=== PATIENT | male | born 1940 | race Caucasian/White ===

== ENCOUNTER 2021-05-29 10:04 | Inpatient (IN) ==
--- NOTE | 2021-05-29 10:34 | Emergency Department Note ---
SOB HPI General Chief Complaint: Shortness of Breath/Dyspnea Stated Complaint: SOB, fatigue Time Seen by Provider: 05/29/21 10:10 Source: patient and family Mode of arrival: wheelchair Limitations: no limitations History of Present Illness HPI Narrative: 80-year-old male with O2 dependent COPD presents with 2 days of increasing oxygen requirements from 3 L to 5 L nasal cannula, shortness of breath, weakness, generalized fatigue, and poor appetite. He also carries a history of hypertension, A. fib on chronic Xarelto, history of CVA, CKD stage III, and T2DM. His states that he was ambulatory several days ago, but has now become so weak that he cannot ambulate without assistance. He was treated for pneumonia 1 month ago by provider at [facility]. Chart review shows that he was treated with prednisone. No history of antibiotics. She states that he improved, but did not completely return to his baseline. He denies fever/chills/sweats. Denies chest pain, or worsening edema. Denies abdominal pain, dysuria or hematuria. Related Data Home Medications Medication Instructions Recorded Confirmed blood sugar diagnostic #20 each 07/08/17 02/13/21 gabapentin 300 mg capsule 300 mg PO BID cap 07/08/17 02/13/21 hydrochlorothiazide 25 mg tablet 25 mg PO QDAY 07/08/17 02/13/21 insulin glargine 100 unit/mL (3 20 unit SUB-Q QHS ml 07/08/17 12/22/20 mL) subcutaneous pen (Lantus Solostar U-100 Insulin) lancets #50 each 07/08/17 02/13/21 lisinopril 40 mg tablet 40 mg PO QDAY 07/08/17 02/13/21 onetouch ultra blue test strips .ROUTE 07/08/17 02/13/21 CPAP #1 ea 12/18/18 02/13/21 budesonide 160 mcg-glycopyr 9 2 inh INHALATION BID 06/23/20 02/13/21 mcg-formot 4.8 mcg/actuation HFA inhaler (Breztri Aerosphere) aripiprazole 5 mg tablet 5 mg PO QDAY 02/13/21 02/13/21 fluoxetine 20 mg capsule 20 mg PO QDAY 02/13/21 02/13/21 furosemide 40 mg tablet 40 mg PO QAM 02/13/21 02/13/21 glipizide 5 mg tablet 5 mg PO QDAY tab 02/13/21 02/13/21 lovastatin 40 mg tablet 40 mg PO QDAY 02/13/21 02/13/21 metformin 1,000 mg tablet 1,000 mg PO BID tab 02/13/21 02/13/21 rivaroxaban 20 mg tablet (Xarelto) 20 mg PO QDAY tab 02/13/21 02/13/21 sildenafil 100 mg tablet (Viagra) 100 mg PO QDAY PRN 02/13/21 02/13/21 Previous Rx's Medication Instructions Recorded tamsulosin 0.4 mg capsule (Flomax) 0.4 mg PO QDAY #30 cap 03/24/18 albuterol sulfate 90 mcg/actuation 2 puff INHALATION .Q4-6H PRN #18 g 07/24/18 aerosol inhaler (ProAir HFA) cholecalciferol (vitamin D3) 50 2,000 unit PO QDAY #90 cap 10/20/18 mcg (2,000 unit) capsule diltiazem HCl 240 mg 240 mg PO QDAY #90 cap 05/24/20 capsule,extended release 24 hr ipratropium 0.5 mg-albuterol 3 mg 3 ml INHALATION QID #180 ml NS 06/29/20 (2.5 mg base)/3 mL nebulization soln budesonide 0.5 mg/2 mL suspension 0.5 mg (2 mL) INHALATION BID #60 10/20/20 for nebulization ml NS ferrous sulfate 325 mg (65 mg 325 mg PO QDAY #90 tab 02/13/21 iron) tablet,delayed release Allergies Allergy/AdvReac Type Severity Reaction Status Date / Time No Known Drug Allergies Allergy Verified 05/29/21 10:07 Review of Systems ROS ROS Narrative: Narrative: PFSH Narrative Patient History Narrative: Narrative: Medical/Surgical/Family History All Active Problems (Updated 05/29/21 @ 12:52 by Leda Chandra PA-C) Community acquired pneumonia (Acute) COPD (chronic obstructive pulmonary disease) (Acute) CHF exacerbation (Acute) Weakness (Acute) Iron deficiency anemia, unspecified (Chronic) Anemia due to stage 3b chronic kidney disease (Chronic) CHF (congestive heart failure) (Acute) Hyperkalemia, diminished renal excretion (Acute) Chronic kidney disease (CKD) stage G3b/A2, moderately decreased glomerular filtration rate (GFR) between 30-44 mL/min/1.73 square meter and albuminuria c reatinine ratio between 30-299 mg/g (Chronic) Localized edema due to fluid overload (Chronic) Hypertension in stage 3 chronic kidney disease due to type 2 diabetes mellitus (Acute) AMADOR (dyspnea on exertion) (Chronic) COPD (chronic obstructive pulmonary disease) (Chronic) Vitamin D deficiency (Chronic) Secondary hyperparathyroidism of renal origin (Chronic) Hypoxemia (Chronic) Increased frequency of urination (Chronic) Benign prostatic hyperplasia (Chronic) Atrial flutter (Chronic) CVA (cerebral vascular accident) (Chronic) Acute exacerbation of chronic obstructive airways disease (Chronic) Lower urinary tract infection (Chronic) Obesity (Chronic) Bladder dysfunction (Chronic) intermediate current use of anticoagulant (Chronic) History of sleep apnea (Chronic) Hypoxia (Chronic) A-fib (Chronic) 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) Hypogonadism (Chronic) Persistent microalbuminuria associated with type 2 diabetes mellitus (Chronic) Overactive bladder (Chronic) Deep venous thrombosis (Chronic) Bradycardia (Chronic) Pulmonary embolism (Chronic) Essential hypertension (Chronic) Obstructive sleep apnea syndrome (Chronic) Hyperlipidemia (Chronic) Diabetic peripheral neuropathy (Chronic) Type 2 diabetes mellitus (Chronic) Diabetes mellitus (Chronic) Moderate chronic obstructive pulmonary disease (Chronic) Medical History (Updated 05/29/21 @ 12:52 by Leda Chandra PA-C) A-fib Acute exacerbation of chronic obstructive airways disease Atrial flutter Benign prostatic hyperplasia Bladder dysfunction Bradycardia CHF (congestive heart failure) COPD (chronic obstructive pulmonary disease) CVA (cerebral vascular accident) Deep venous thrombosis Diabetes mellitus Diabetic peripheral neuropathy AMADOR (dyspnea on exertion) Essential hypertension History of cocaine abuse History of tobacco use Hyperlipidemia Hypogonadism Hypoxemia Hypoxia Increased frequency of urination intermediate current use of anticoagulant Lower urinary tract infection Median neuropathy Moderate chronic obstructive pulmonary disease Obesity Obstructive sleep apnea syndrome Overactive bladder Persistent microalbuminuria associated with type 2 diabetes mellitus Pulmonary embolism Respiratory distress Type 2 diabetes mellitus Ulnar nerve entrapment Ulnar neuropathy Surgical History History of carpal tunnel surgery (06/03/89) History of cataract surgery History of colonoscopy with polypectomy History of heart surgery (06/03/15) History of prior ablation treatment AFIB with ablation Family History Father , age: 81 Hypertensive disorder Family history of stroke Mother , age: 89 Hypertensive disorder Family history of stroke Diabetes mellitus Sister Malignant tumor of breast Brother Family history of stroke Social History Smoking Status: Former smoker Alcohol Intake Frequency: 0-2 drinks per day Substance Use: former substance user Exam Narrative Narrative: General: AOx3, NAD, ill appearing. Pleasant and conversant. HEENT: PERRL, EOMI, normocephalic. Moist mucous membranes. Normal facies and normal dentition. Chest: Symmetric, no pain to palpation Respiratory: Decreased breath sounds bilaterally, no crackles. No respiratory distress. Unlabored breathing. 98% on 5 L nasal cannula. Heart: Irregular rate and rhythm, no murmurs/clicks/rubs. Abdomen: Non-tender, Non distended, hypoactive bowel tones. No organomegaly. Extremities: Warm and well perfused. No edema. DP 2+ bilaterally. Bilateral chronic venous stasis. Neuro: No focal deficits. Cranial nerves II-XII grossly normal. Skin: Warm dry, no rashes or lesions, no cyanosis. Psych: Normal mood and affect Heme/Lymph: No abnormal bruising General Limitations: no limitations Course Course Course Narrative: 80-year-old male with O2 dependent COPD presents with weakness, shortness of breath, and increasing oxygen requirements. Reevaluation(s) Reevaluation #1: CBC, CMP, proBNP, chest x-ray, EKG, lactic acid, blood cultures, UA Give 500 mL IV normal saline bolus Reevaluation #2: Chest x-ray shows probable left lower lobe infiltrate. BNP is significantly elevated at 1200. Lactic acid is normal. CBC without leukocytosis, CMP with baseline creatinine 1.5, EKG shows atrial fibrillation rate of 90 bpm no acute ischemic ST changes. QTC of 431. Give 40 IV Lasix x1 dose and start antibiotics for community-acquired pneumonia, 1 g IV ceftriaxone 500 mg IV azithromycin. Patient's curb 65 score is 3 and he would benefit from inpatient admission. I spoken with the hospitalist who agrees to accept the patient for admission and IV antibiotics. Vital Signs Vital signs: Vital Signs Temperature 98.1 F 05/29/21 10:05 Pulse Rate 85 05/29/21 10:05 Respiratory Rate 20 05/29/21 10:05 Pulse Oximetry (%) 95 05/29/21 10:05 Temperature 98.1 F 05/29/21 10:05 Pulse Rate 61 05/29/21 12:16 Respiratory Rate 27 H 05/29/21 12:31 Blood Pressure 164/100 05/29/21 12:31 Pulse Oximetry (%) 96 05/29/21 12:16 MDM MDM Narrative Medical decision making narrative: Community-acquired pneumonia Hypoxia Acute CHF exacerbation Curb 65 score is 3. Patient has left lower lobe infiltrate on chest x-ray and elevated proBNP. Will treat for both community-acquired pneumonia and CHF exacerbation. Blood cultures x2 are pending. Patient has been signed out to Dr. Shaffer for admission. Lab Data Result diagrams: 05/29/21 10:21 05/29/21 10:21 Labs: Lab Results 05/29/21 05/29/21 05/29/21 Range/Units 10:21 10:21 10:21 WBC 8.9 (4.5-11.0) K/mcL RBC 4.07 L (4.63-6.08) M/mcL Hgb 11.2 L (13.7-17.5) g/dL Hct 34.9 L (40.1-51.0) % MCV 85.7 (80.0-100.0) fL MCH 27.5 (26.0-34.0) pg MCHC 32.1 (31.0-36.0) g/dL RDW 14.8 H (11.5-14.5) % Plt Count 222 (140-440) K/mcL MPV 9.5 (7.4-10.4) fL Seg Neutrophils % 85 H (38-78) % Band Neutrophils % 1 (0-10) % Lymphocytes % 9 L (15-49) % Monocytes % (Manual) 5 (1-12) % Platelet Estimate Normal (Normal) RBC Morphology Normal (Normal) VBG Lactic Acid 1.1 (0.5-2.0) mmol/L Sodium 132 L (133-145) mmol/L Potassium 4.0 (3.3-5.1) mmol/L Chloride 93 L (96-108) mmol/L Carbon Dioxide 25 (22-30) mmol/L Anion Gap 14.0 (8.0-16.0) BUN 29 H (8-23) mg/dL Creatinine 1.5 H (0.7-1.2) mg/dL GFR Calculation 44 Glucose 120 H (70-105) mg/dL Calcium 9.1 (8.6-10.4) mg/dL Total Bilirubin 0.6 (0.1-1.0) mg/dL AST 7 (<40) U/L ALT 5 (<40) U/L Alkaline Phosphatase 83 (39-117) U/L NT-Pro-B Natriuret Pep 1242.0 H (<450.0) pg/mL Total Protein 7.6 (5.9-8.4) gm/dL Albumin 3.8 (3.2-5.2) gm/dL Globulin 3.8 H (2.2-3.7) gm/dL Albumin/Globulin Ratio 1.0 (1.0-2.3) Urine Color Urine Appearance (Clear) Urine pH (5.0-9.0) Ur Specific [place] (1.000-1.035) Urine Protein (Negative) mg/dL Urine Glucose (UA) (Negative) mg/dL Urine Ketones (Negative) mg/dL Urine Occult Blood (Negative) mg/dL Urine Nitrate (Negative) Urine Bilirubin (Negative) mg/dL Urine Urobilinogen mg/dL Ur Leukocyte Esterase (Negative) /uL Urine RBC (0-3) /hpf Urine WBC (0-4) /hpf Ur Squamous Epith Cells (0-4) /hpf Urine Bacteria (0) /hpf Hyaline Casts (0-2) /lph Urine Mucus (None) /hpf Ur Culture Indicated? 05/29/21 Range/Units 11:29 WBC (4.5-11.0) K/mcL RBC (4.63-6.08) M/mcL Hgb (13.7-17.5) g/dL Hct (40.1-51.0) % MCV (80.0-100.0) fL MCH (26.0-34.0) pg MCHC (31.0-36.0) g/dL RDW (11.5-14.5) % Plt Count (140-440) K/mcL MPV (7.4-10.4) fL Seg Neutrophils % (38-78) % Band Neutrophils % (0-10) % Lymphocytes % (15-49) % Monocytes % (Manual) (1-12) % Platelet Estimate (Normal) RBC Morphology (Normal) VBG Lactic Acid (0.5-2.0) mmol/L Sodium (133-145) mmol/L Potassium (3.3-5.1) mmol/L Chloride (96-108) mmol/L Carbon Dioxide (22-30) mmol/L Anion Gap (8.0-16.0) BUN (8-23) mg/dL Creatinine (0.7-1.2) mg/dL GFR Calculation Glucose (70-105) mg/dL Calcium (8.6-10.4) mg/dL Total Bilirubin (0.1-1.0) mg/dL AST (<40) U/L ALT (<40) U/L Alkaline Phosphatase (39-117) U/L NT-Pro-B Natriuret Pep (<450.0) pg/mL Total Protein (5.9-8.4) gm/dL Albumin (3.2-5.2) gm/dL Globulin (2.2-3.7) gm/dL Albumin/Globulin Ratio (1.0-2.3) Urine Color Yellow Urine Appearance Clear (Clear) Urine pH 5.0 (5.0-9.0) Ur Specific [place] 1.025 (1.000-1.035) Urine Protein 100 A (Negative) mg/dL Urine Glucose (UA) Negative (Negative) mg/dL Urine Ketones 20 A (Negative) mg/dL Urine Occult Blood 0.03 (Negative) mg/dL Urine Nitrate Negative (Negative) Urine Bilirubin Negative (Negative) mg/dL Urine Urobilinogen 2.0 A mg/dL Ur Leukocyte Esterase Negative (Negative) /uL Urine RBC 1 (0-3) /hpf Urine WBC 1 (0-4) /hpf Ur Squamous Epith Cells 0 (0-4) /hpf Urine Bacteria None (0) /hpf Hyaline Casts 4 H (0-2) /lph Urine Mucus Few A (None) /hpf Ur Culture Indicated? No ED POC Tests ED POC Tests: SAMIRA - Influenza A Negative SAMIRA - Influenza B Negative SAMIRA - SARS Antigen Negative Discharge Plan Patient/Caregiver Discharge Instructions Pt seen by GUARD LIEUTENANT/PA only: Yes Clinical Impression: Community acquired pneumonia, COPD (chronic obstructive pulmonary disease), CHF exacerbation, Weakness Patient Disposition: Xfer As Inpt ([facility]) Condition: Fair Follow up with: Hadley Hernandez DO [Primary Care Provider] - Prescriptions: No Action diltiazem HCl 240 mg capsule,extended release 24hr 240 mg PO QDAY Qty: 90 4RF ipratropium-albuterol 0.5 mg-3 mg(2.5 mg base)/3 mL solution for nebulization 3 ml INHALATION QID Qty: 180 6RF gabapentin 300 mg capsule 300 mg PO BID 0RF hydrochlorothiazide 25 mg tablet 25 mg PO QDAY 0RF insulin glargine [Lantus Solostar U-100 Insulin] 100 unit/mL (3 mL) insulin pen 20 unit SUB-Q QHS 0RF lisinopril 40 mg tablet 40 mg PO QDAY 0RF (DME) blood sugar diagnostic strip See Dose Instructions .ROUTE .MEDSUPPLY Qty: 20 0RF Rx Instructions: As directed (DME) lancets misc See Dose Instructions .ROUTE .MEDSUPPLY Qty: 50 0RF Rx Instructions: As directed onetouch ultra blue test strips .Route 0RF Label Comments: .Route Rx Instructions: .Route Xarelto 20 mg tablet 20 mg PO QDAY 0RF glipizide 5 mg tablet 5 mg PO QDAY 0RF cholecalciferol (vitamin D3) 2,000 unit capsule 2,000 unit PO QDAY Qty: 90 4RF metformin 1,000 mg tablet 1,000 mg PO BID 0RF fluoxetine 20 mg capsule 20 mg PO QDAY 0RF furosemide 40 mg tablet 40 mg PO QAM 0RF sildenafil [Viagra] 100 mg tablet 100 mg PO QDAY PRN0RF Rx Instructions: administer 30 minutes to 4 hours before activity lovastatin 40 mg tablet 40 mg PO QDAY 0RF aripiprazole 5 mg tablet 5 mg PO QDAY 0RF ferrous sulfate 325 mg (65 mg iron) tablet,delayed release (DR/EC) 325 mg PO QDAY Qty: 90 4RF ProAir HFA 90 mcg/actuation HFA aerosol inhaler 2 puff INHALATION .Q4-6H PRN (Reason: Shortness Of Breath) Qty: 18 6RF budesonide 0.5 mg/2 mL suspension for nebulization 0.5 mg inhalation BID Qty: 60 12RF Rx Instructions: Nebulized and inhale 1 vial twice a day; rinse and clear mouth after. (DME) CPAP Qty: 1 0RF Dose Instruction: As directed Rx Instructions: As directed Tracy Traffline 160-9-4.8 mcg/actuation HFA aerosol inhaler 2 inh INHALATION BID 0RF tamsulosin [Flomax] 0.4 mg capsule 0.4 mg PO QDAY Qty: 30 12RF
[2021-05-29 11:08] LABS: Hematocrit 34.9 % (40.1-51.0); Hemoglobin 11.2 g/dL (13.7-17.5); Mean Cell Volume 85.7 fL (80.0-100.0); Mean Corpuscular HGB Conc 32.1 g/dL (31.0-36.0); Mean Platelet Volume 9.5 fL (7.4-10.4); Platelet Count 222 K/mcL (140-440); RBC 4.07 M/mcL (4.63-6.08); Red Cell Distribution Width 14.8 % (11.5-14.5); WBC 8.9 K/mcL (4.5-11.0)
[2021-05-29 11:32] LABS: ALT/SGPT 5 U/L (<40); AST/SGOT 7 U/L (<40); Albumin 3.8 gm/dL (3.2-5.2); Alkaline Phosphatase 83 U/L (39-117); Bilirubin,Total 0.6 mg/dL (0.1-1.0); Blood Urea Nitrogen 29 mg/dL (8-23); Calcium 9.1 mg/dL (8.6-10.4); Carbon Dioxide 25 mmol/L (22-30); Chloride 93 mmol/L (96-108); Globulin 3.8 gm/dL (2.2-3.7); Glomerular Filtration Rate 44; Glucose 120 mg/dL (70-105)
[2021-05-29] MEDS ORDERED: 0.9 % SODIUM CHLORIDE 500 ML IV ONE (11:34)
[2021-05-29] MEDS ORDERED: cefTRIAXone 1 GM VIAL IV ONE (11:56)
[2021-05-29] MEDS ORDERED: FUROSEMIDE 40 MG/4 ML VIAL IV ONE (11:56)
--- NOTE | 2021-05-29 11:56 | XRay Report ---
CLINICAL INFORMATION: Dyspnea COMPARISON: 03/22/2021 TECHNIQUE: Portable FINDINGS: The heart size, mediastinum and pulmonary vessels are unremarkable. Moderate left basilar infiltrate is developing a small left pleural effusion. IMPRESSION: Moderate left basilar infiltrate with small effusion Interpreted and Authenticated by: Nicola Dias 05/29/21
[2021-05-29] MEDS ORDERED: AZITHROMYCIN 500 MG in DEXTROSE 5% IN WATER 250 ML IV ONE (11:57)
[2021-05-29 12:01] LABS: Band Neutrophils % 1 % (0-10); Lymphocytes % 9 % (15-49); Monocytes % (Manual) 5 % (1-12); Platelet Estimate NORMAL (Normal); RBC Morphology NORMAL (Normal); Segmented Neutrophils % 85 % (38-78)
[2021-05-29 12:20] LABS: Appearance,Urine CLEAR (Clear); Bilirubin,Urine Negative (Negative); Color,Urine YELLOW; Culture Indicated,Urine No; Glucose,Urine (UA) Negative (Negative); Ketones,Urine 20 mg/dL (Negative); Leukocyte Esterase,Urine Negative /uL (Negative); Mucus,Urine FEW /hpf; Nitrate,Urine Negative (Negative); Protein,Urine 100 mg/dL (Negative); Specific Gravity,Urine 1.025 (1.000-1.035); Urine Blood 0.03 mg/dL (Negative); Urine Hyaline Cast 4 /lph (0-2); Urine RBC 1 /hpf (0-3); Urine Squamous Epithelial Cell 0 /hpf (0-4); Urine WBC 1 /hpf (0-4)
--- NOTE | 2021-05-29 12:59 | Internal Med History&Physical ---
HPI History of Present Illness Patient information: Note initiated : 05/29/21 at 12:54 pm Service Date, if different from initiated Date: [] Patient: Maximo De La Cruz a 80 y/o M admitted on for SOB, fatigue. Chief Complaint: [shortness of breath] Chief complaint: shortness of breath History of present illness: Mr. De La Cruz is a 80 year old M h/o COPD, CHF, ALEJANDRA on CPAP, atrial fibrillation on anticoagulant, HTN, HLD, CKDIII, p/w 1 week history of acute on chronic respiratory failure with productive cough. He had similar episode in 2020 when he presented to urgent care facility and was being treated with Prednisone w/o antibiotics as per urgent care documentations. He is vaccinated against CoVID pneumonia. He uses home oxygen baseline 2L/min, but he has to turn it up to 5L/min over the past week. He is also c/o increasing degree of shortness of breath, together with productive cough with clear sputun. Denies any respiratory wheezing. Denies any chest pain or palpitation. Denies any fever, chills, or sweating. Denies any anxiety or agitation. Vital signs at ED presentations significant for tachypnea with RR up to the upper 20s bpm, rest of the vital signs within normal limits. Labs significant for lack of leukocytosis with WBC 8.9. Lactic acid 1.1. Serum Cr level 1.5 which is around his baseline. BNP 1242. UA does not suggest presence of UTI. [place] test negative. CXR showing moderate left basilar infiltrate with small effusion. Constitutional Constitutional: Present fatigue and weakness; Absent chills, excessive sweating or fever(s) EENT Eyes: Absent blurry vision, change in vision, loss of vision or other visual disturbances Ears: Absent decreased hearing or tinnitus Nose, mouth and throat: Absent abnormal hearing, dry mouth, headache(s), nasal congestion or sore throat Cardiovascular Cardiovascular: Absent chest pain, chest pain at rest, edema, irregular heart rhythm or palpatations Respiratory Respiratory: Present cough, dyspnea and excessive phlegm production; Absent wheezing Gastrointestinal Gastrointestinal: Absent abdominal pain, constipation, diarrhea, nausea or vomiting Musculoskeletal Musculoskeletal: Absent back pain, deformity, limited range of motion, muscle cramps, muscle weakness or numbness Integumentary Integumentary: Absent lesions, rash or wounds Neurological Neurological: Absent focal weakness, headache(s) or numbness Psychiatric Psychiatric: Absent anxiety, depression or hallucinations PFSH PFSH All Active Problems (Updated 05/29/21 @ 13:05 by Enrique Shaffer MD) Mixed dyslipidemia (Acute) Permanent atrial fibrillation (Acute) Community acquired pneumonia (Acute) COPD (chronic obstructive pulmonary disease) (Acute) CHF exacerbation (Acute) Weakness (Acute) Iron deficiency anemia, unspecified (Chronic) Anemia due to stage 3b chronic kidney disease (Chronic) CHF (congestive heart failure) (Acute) Hyperkalemia, diminished renal excretion (Acute) Chronic kidney disease (CKD) stage G3b/A2, moderately decreased glomerular filtration rate (GFR) between 30-44 mL/min/1.73 square meter and albuminuria creatinine ratio between 30-299 mg/g (Chronic) Localized edema due to fluid overload (Chronic) Hypertension in stage 3 chronic kidney disease due to type 2 diabetes mellitus (Acute) AMADOR (dyspnea on exertion) (Chronic) COPD (chronic obstructive pulmonary disease) (Chronic) Vitamin D deficiency (Chronic) Secondary hyperparathyroidism of renal origin (Chronic) Hypoxemia (Chronic) Increased frequency of urination (Chronic) Benign prostatic hyperplasia (Chronic) Atrial flutter (Chronic) CVA (cerebral vascular accident) (Chronic) Acute exacerbation of chronic obstructive airways disease (Chronic) Lower urinary tract infection (Chronic) Obesity (Chronic) Bladder dysfunction (Chronic) long-term current use of anticoagulant (Chronic) History of sleep apnea (Chronic) Hypoxia (Chronic) A-fib (Chronic) 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) Hypogonadism (Chronic) Persistent microalbuminuria associated with type 2 diabetes mellitus (Chronic) Overactive bladder (Chronic) Deep venous thrombosis (Chronic) Bradycardia (Chronic) Pulmonary embolism (Chronic) Essential hypertension (Chronic) Obstructive sleep apnea syndrome (Chronic) Hyperlipidemia (Chronic) Diabetic peripheral neuropathy (Chronic) Type 2 diabetes mellitus (Chronic) Diabetes mellitus (Chronic) Moderate chronic obstructive pulmonary disease (Chronic) Medical History (Updated 05/29/21 @ 13:05 by Enrique Shaffer MD) A-fib Acute exacerbation of chronic obstructive airways disease Atrial flutter Benign prostatic hyperplasia Bladder dysfunction Bradycardia CHF (congestive heart failure) COPD (chronic obstructive pulmonary disease) CVA (cerebral vascular accident) Deep venous thrombosis Diabetes mellitus Diabetic peripheral neuropathy AMADOR (dyspnea on exertion) Essential hypertension History of cocaine abuse History of tobacco use Hyperlipidemia Hypogonadism Hypoxemia Hypoxia Increased frequency of urination long-term current use of anticoagulant Lower urinary tract infection Median neuropathy Moderate chronic obstructive pulmonary disease Obesity Obstructive sleep apnea syndrome Overactive bladder Persistent microalbuminuria associated with type 2 diabetes mellitus Pulmonary embolism Respiratory distress Type 2 diabetes mellitus Ulnar nerve entrapment Ulnar neuropathy Surgical History History of carpal tunnel surgery (06/03/89) History of cataract surgery History of colonoscopy with polypectomy History of heart surgery (06/03/15) History of prior ablation treatment AFIB with ablation Family History Father , age: 81 Hypertensive disorder Family history of stroke Mother , age: 89 Hypertensive disorder Family history of stroke Diabetes mellitus Sister Malignant tumor of breast Brother Family history of stroke Social History education level: high school occupational status: retired sexually active: Yes physical activity: none smoking status: Former smoker quit date: 06/03/99 pack-years: 40 smoking status stop date: 06/03/09 quit status: quit date established alcohol intake frequency: 0-2 drinks per day substance use type: former substance user seatbelt use: always firearms in home: Yes MEDS/ALLERGIES Home Medications and Allergies Home Medications Medication Instructions Recorded Confirmed Type blood sugar diagnostic #20 each 07/08/17 02/13/21 History gabapentin 300 mg capsule 300 mg PO BID cap 07/08/17 02/13/21 History hydrochlorothiazide 25 mg tablet 25 mg PO QDAY 07/08/17 02/13/21 History insulin glargine 100 unit/mL (3 20 unit SUB-Q QHS ml 07/08/17 12/22/20 History mL) subcutaneous pen (Lantus Solostar U-100 Insulin) lancets #50 each 07/08/17 02/13/21 History lisinopril 40 mg tablet 40 mg PO QDAY 07/08/17 02/13/21 History onetouch ultra blue test strips .ROUTE 07/08/17 02/13/21 History tamsulosin 0.4 mg capsule (Flomax) 0.4 mg PO QDAY #30 cap 03/24/18 02/13/21 Rx albuterol sulfate 90 mcg/actuation 2 puff INHALATION .Q4-6H PRN #18 g 07/24/18 02/13/21 Rx aerosol inhaler (ProAir HFA) cholecalciferol (vitamin D3) 50 2,000 unit PO QDAY #90 cap 10/20/18 02/13/21 Rx mcg (2,000 unit) capsule CPAP #1 ea 12/18/18 02/13/21 History diltiazem HCl 240 mg 240 mg PO QDAY #90 cap 05/24/20 02/13/21 Rx capsule,extended release 24 hr budesonide 160 mcg-glycopyr 9 2 inh INHALATION BID 06/23/20 02/13/21 History mcg-formot 4.8 mcg/actuation HFA inhaler (Breztri Aerosphere) ipratropium 0.5 mg-albuterol 3 mg 3 ml INHALATION QID #180 ml NS 06/29/20 02/13/21 Rx (2.5 mg base)/3 mL nebulization soln budesonide 0.5 mg/2 mL suspension 0.5 mg (2 mL) INHALATION BID #60 10/20/20 02/13/21 Rx for nebulization ml NS aripiprazole 5 mg tablet 5 mg PO QDAY 02/13/21 02/13/21 History ferrous sulfate 325 mg (65 mg 325 mg PO QDAY #90 tab 02/13/21 02/13/21 Rx iron) tablet,delayed release fluoxetine 20 mg capsule 20 mg PO QDAY 02/13/21 02/13/21 History furosemide 40 mg tablet 40 mg PO QAM 02/13/21 02/13/21 History glipizide 5 mg tablet 5 mg PO QDAY tab 02/13/21 02/13/21 History lovastatin 40 mg tablet 40 mg PO QDAY 02/13/21 02/13/21 History metformin 1,000 mg tablet 1,000 mg PO BID tab 02/13/21 02/13/21 History rivaroxaban 20 mg tablet (Xarelto) 20 mg PO QDAY tab 02/13/21 02/13/21 History sildenafil 100 mg tablet (Viagra) 100 mg PO QDAY PRN 02/13/21 02/13/21 History Allergies Allergy/AdvReac Type Severity Reaction Status Date / Time No Known Drug Allergies Allergy Verified 05/29/21 10:07 EXAM Constitutional Vitals: Temp Pulse Resp BP Pulse Ox 36.7 C 61 27 H 164/100 96 05/29/21 10:05 05/29/21 12:16 05/29/21 12:31 05/29/21 12:31 05/29/21 12:16 General appearance: cooperative and mild distress Head Head exam: Present atraumatic and normocephalic Eye Eye exam: Present EOMI and PERRL ENT ENT exam: Present mucous membranes moist, normal exam and normal external ear exam Additional comments: Nasal cannula in place Neck Neck exam: Present normal inspection; Absent lymphadenopathy, tenderness or thyromegaly Respiratory Respiratory exam: Present decreased breath sounds and rhonchi; Absent accessory muscle use, respiratory distress or wheezes Cardiovascular Cardiovascular exam: Present irregular rhythm; Absent JVD GI/Abdominal GI/Abdominal exam: Present normal bowel sounds and soft; Absent organomegaly or tenderness Rectal Rectal exam: Present deferred Extremities Exam Extremities exam: Present full ROM, normal capillary refill and normal inspection; Absent tenderness Neurological Exam Neurological exam: Present alert, CN II-XII intact and oriented X3; Absent motor sensory deficit Psychiatric Psychiatric exam: Present normal affect and normal mood; Absent anxious or depressed Skin Skin exam: Present dry and intact DATA Data Completed and Pending Labs: Labs from last 24 hours 05/29/21 05/29/21 05/29/21 11:29 10:21 10:21 WBC RBC Hgb Hct MCV MCH MCHC RDW Plt Count MPV Seg Neutrophils % Band Neutrophils % Lymphocytes % Monocytes % (Manual) Platelet Estimate RBC Morphology VBG Lactic Acid 1.1 Sodium 132 L Potassium 4.0 Chloride 93 L Carbon Dioxide 25 Anion Gap 14.0 BUN 29 H Creatinine 1.5 H GFR Calculation 44 Glucose 120 H Calcium 9.1 Total Bilirubin 0.6 AST 7 ALT 5 Alkaline Phosphatase 83 NT-Pro-B Natriuret Pep 1242.0 H Total Protein 7.6 Albumin 3.8 Globulin 3.8 H Albumin/Globulin Ratio 1.0 Urine Color Yellow Urine Appearance Clear Urine pH 5.0 Ur Specific [place] 1.025 Urine Protein 100 A Urine Glucose (UA) Negative Urine Ketones 20 A Urine Occult Blood 0.03 Urine Nitrate Negative Urine Bilirubin Negative Urine Urobilinogen 2.0 A Ur Leukocyte Esterase Negative Urine RBC 1 Urine WBC 1 Ur Squamous Epith Cells 0 Urine Bacteria None Hyaline Casts 4 H Urine Mucus Few A Ur Culture Indicated? No 12/27/21 10:21 WBC 8.9 RBC 4.07 L Hgb 11.2 L Hct 34.9 L MCV 85.7 MCH 27.5 MCHC 32.1 RDW 14.8 H Plt Count 222 MPV 9.5 Seg Neutrophils % 85 H Band Neutrophils % 1 Lymphocytes % 9 L Monocytes % (Manual) 5 Platelet Estimate Normal RBC Morphology Normal VBG Lactic Acid Sodium Potassium Chloride Carbon Dioxide Anion Gap BUN Creatinine GFR Calculation Glucose Calcium Total Bilirubin AST ALT Alkaline Phosphatase NT-Pro-B Natriuret Pep Total Protein Albumin Globulin Albumin/Globulin Ratio Urine Color Urine Appearance Urine pH Ur Specific [place] Urine Protein Urine Glucose (UA) Urine Ketones Urine Occult Blood Urine Nitrate Urine Bilirubin Urine Urobilinogen Ur Leukocyte Esterase Urine RBC Urine WBC Ur Squamous Epith Cells Urine Bacteria Hyaline Casts Urine Mucus Ur Culture Indicated? A/P Assessment and plan (1) Community acquired pneumonia: Status: Acute (2) Acute exacerbation of chronic obstructive airways disease: Status: Chronic (3) CHF (congestive heart failure): Status: Acute (4) Anemia due to stage 3b chronic kidney disease: Status: Chronic (5) Hypertension in stage 3 chronic kidney disease due to type 2 diabetes me llitus: Status: Acute (6) Permanent atrial fibrillation: Status: Acute (7) Type 2 diabetes mellitus: Status: Chronic (8) Obstructive sleep apnea syndrome: Status: Chronic (9) Essential hypertension: Status: Chronic (10) Mixed dyslipidemia: Status: Acute Narrative A/P Narrative: Assessment and Plans: 1. Community acquired pneumonia (LLL): Admit to inpatient med surg Lactic acid Procalcitonin Blood culture [place] test pending cbc w/ auto diff in the morning to trend WBC Tylenol PRN fever Robitussin DM PRN cough Rocephin Zithromax Supplemental oxygen therapy, titrate to achieve spo2>=88% given COPD-er, currently on 2L/min (baseline) 2. COPD exacerbation: Supplemental oxygen therapy, titrate to achieve spo2>=88% given COPD-er, currently on 2L/min (baseline) Prednisone DuoNEB NEB q4hr scheduled Albuterol NEB q2hr PRN wheezing 3. Atrial fibrillation: Diltiazem Xarelto 4. CHF, stable: Supplemental oxygen therapy, titrate to achieve spo2>=88% given COPD-er, currently on 2L/min (baseline) Lasix HCTZ Lisinopril 5. T2DM: HgA1c Hold Metformin Glipizide Insulin Lantus 20 unit HS Low dose correctional scale insulin AC HS Accu Chek AC HS Hypoglycemia protocol Diabetic diet 6. ALEJANDRA on CPAP: CPAP at night while sleeping 7. Essential HTN: Lisinopril Diltiazem HCTZ Lasix Hydralazine 10mg IV q4-6hr PRN SBP>=180 and/or DBP>=110mmHg 8. Mixed dyslipidemia: Continue statin therapy 9. CKD III: Serum Cr level 1.5 at around baseline Avoid nephrotoxic agents Lisinopril Saline lock with diuretics as part of the treatment of CHF CMP in the morning to trend kidney functions GI ppx: not currently indicated DVT ppx: Heparin Code status: Full Prognosis: Guarded Disposition: inpatient med surg Time Spent With Patient Time: Total time spent is greater than 50% in coordination of care (as documented) at patient's floor/unit and/or counseling patient: Total time spent with greater than 50% in coordination of care (as documented) at patient's floor/unit and/or counseling patient:: Greater than 35 minutes
[2021-05-29] MEDS ORDERED: guaiFENesin/DEXTROMETHORPHAN ORAL SOL PO PRN (13:42)
[2021-05-29] MEDS ORDERED: ALBUTEROL SULFATE 2.5 MG/3 ML NEBULIZER NEB PRN (13:42)
[2021-05-29] MEDS ORDERED: ACETAMINOPHEN 325 MG TABLET PO PRN (13:42)
[2021-05-29] MEDS ORDERED: ONDANSETRON 4 MG/2 ML VIAL IV PRN (13:42)
[2021-05-29] MEDS ORDERED: cefTRIAXone 1 GM in DEXTROSE 5% IN WATER 50 ML IV SCH (13:42)
[2021-05-29] MEDS ORDERED: traZODone HCL 50 MG TABLET PO PRN (13:42)
[2021-05-29] MEDS ORDERED: AZITHROMYCIN 500 MG in DEXTROSE 5% IN WATER 250 ML IV SCH (13:42)
[2021-05-29] MEDS ORDERED: DEXTROSE 50% 50 ML VIAL IV PRN (13:42)
[2021-05-29] MEDS ORDERED: DEXTROSE 31 GM ORAL.SUSP PO PRN (13:42)
[2021-05-29] MEDS ORDERED: hydrALAZINE 20 MG/ML VIAL IV PRN (13:42)
[2021-05-29 14:30] LABS: Estimated Average Glucose(eAG) 151 mg/dL; Hemoglobin A1C 6.9 % Hgb (4.0-6.0)
[2021-05-29] MEDS: INSULIN LISPRO 1 UNIT/0.01 ML UNIT SQ SCH ×2 (15:45→22:04)
[2021-05-29] MEDS: IPRATROPIUM/ALBUTEROL 3 ML AMPUL.NEB NEB SCH ×3 (16:14→23:28)
--- NOTE | 2021-05-29 16:39 | EKG ---
[facility] Test Date: 2021-05-29 Pat Name: Maximo De La Cruz Department: ED Room: Gender: Male Rolfer: jasmina : 1940 Requested By: Leda Chandra Order Number: [id number] Reading MD: Nicola Oliva M.D. Measurements Intervals [place] Rate: 90 P: DC: QRS: 101 QRSD: 93 T: 59 QT: 352 QTc: 431 Interpretive Statements Atrial fibrillation Right axis deviation Electronically Signed On 05-29-2021 16:39:19 PST by Nicola Oliva M.D. /[id number]
[2021-05-29] MEDS: predniSONE 20 MG TABLET PO SCH (16:51)
[2021-05-29] MEDS: 0.9 % SODIUM CHLORIDE 10 ML SYRINGE IV SCH ×2 (16:52→22:50)
[2021-05-29] MEDS: BUDESONIDE 0.5 MG/2 ML AMPUL.NEB NEB SCH (20:05)
[2021-05-29] MEDS: GABAPENTIN 300 MG CAPSULE PO SCH (21:51)
[2021-05-29] MEDS: SENNOSIDES 1 TABLET PO SCH (21:51)
[2021-05-29] MEDS: DOCUSATE SODIUM 100 MG CAPSULE PO SCH (21:51)
[2021-05-29] MEDS: INSULIN GLARGINE, HUMAN 1 UNIT/0.01 ML SQ SCH (21:56)
[2021-05-29] MEDS: [UNRECOGNIZED DRUG - OTHER] INH SCH (22:05)
[2021-05-29] MEDS: FORMOTEROL 4.8 MCG INH SCH (22:05)
[2021-05-29] MEDS: BUDESONIDE 160 MCG INH SCH (22:05)
[2021-05-30] MEDS: IPRATROPIUM/ALBUTEROL 3 ML AMPUL.NEB NEB SCH ×6 (03:45→23:03)
[2021-05-30] MEDS: BUDESONIDE 0.5 MG/2 ML AMPUL.NEB NEB SCH ×2 (07:02→19:07)
[2021-05-30] MEDS: glipiZIDE 5 MG TABLET PO SCH (07:46)
[2021-05-30] MEDS: FERROUS SULFATE 325 MG TABLET PO SCH (07:46)
[2021-05-30] MEDS: INSULIN LISPRO 1 UNIT/0.01 ML UNIT SQ SCH ×4 (07:46→21:44)
[2021-05-30] MEDS: predniSONE 20 MG TABLET PO SCH (07:46)
[2021-05-30] MEDS: RIVAROXABAN 15 MG TABLET PO SCH (07:46)
[2021-05-30 08:06] LABS: Basophils # (Auto) 0.01 K/mcL (0.00-0.30); Basophils % (Auto) 0.1 % (0.0-2.0); Eosinophils # (Auto) 0 K/mcL (0.00-0.70); Eosinophils % (Auto) 0 % (0.0-7.0); Hematocrit 32.2 % (40.1-51.0); Hemoglobin 10.5 g/dL (13.7-17.5); Lymphocytes # (Auto) 0.64 K/mcL (1.50-4.80); Lymphocytes % (Auto) 9.4 % (15.5-49.0); Mean Cell Volume 83.9 fL (80.0-100.0); Mean Corpuscular HGB Conc 32.6 g/dL (31.0-36.0); Mean Platelet Volume 9.9 fL (7.4-10.4); Monocytes # (Auto) 0.62 K/mcL (0.10-0.90); Monocytes % (Auto) 9.1 % (1.0-12.0); Neutrophils % (Auto) 81.4 % (38.0-78.0); Platelet Count 223 K/mcL (140-440); RBC 3.84 M/mcL (4.63-6.08); Red Cell Distribution Width 14.6 % (11.5-14.5); WBC 6.8 K/mcL (4.5-11.0)
[2021-05-30 08:28] LABS: ALT/SGPT < 5 U/L (<40); AST/SGOT 6 U/L (<40); Albumin 3.2 gm/dL (3.2-5.2); Albumin/Globulin Ratio 0.8 (1.0-2.3); Alkaline Phosphatase 75 U/L (39-117); Bilirubin,Total 0.4 mg/dL (0.1-1.0); Blood Urea Nitrogen 36 mg/dL (8-23); Carbon Dioxide 26 mmol/L (22-30); Chloride 93 mmol/L (96-108); Globulin 4.1 gm/dL (2.2-3.7); Glomerular Filtration Rate 40; Glucose 193 mg/dL (70-105); Phosphorous 4.4 mg/dL (2.5-4.5)
[2021-05-30] MEDS: DILTIAZEM 240 MG CAP.XL.24H PO SCH (09:15)
[2021-05-30] MEDS: HYDROCHLOROTHIAZIDE 25 MG TABLET PO SCH (09:15)
[2021-05-30] MEDS: LISINOPRIL 20 MG TABLET PO SCH (09:15)
[2021-05-30] MEDS: FUROSEMIDE 40 MG TABLET PO SCH (09:15)
[2021-05-30] MEDS: VITAMIN D3 25 MCG TABLET PO SCH (09:15)
[2021-05-30] MEDS: TAMSULOSIN 0.4 MG CAPSULE PO SCH (09:15)
[2021-05-30] MEDS: GABAPENTIN 300 MG CAPSULE PO SCH ×2 (09:15→21:31)
[2021-05-30] MEDS: FLUoxetine HCL 20 MG CAPSULE PO SCH (09:16)
[2021-05-30] MEDS: ARIPIPRAZOLE 5 MG TABLET PO SCH (09:16)
[2021-05-30] MEDS: cefTRIAXone 1 GM VIAL IV SCH (09:16)
[2021-05-30] MEDS: DOCUSATE SODIUM 100 MG CAPSULE PO SCH ×2 (09:16→21:33)
[2021-05-30] MEDS: ATORVASTATIN 10 MG TABLET PO SCH (09:16)
[2021-05-30] MEDS: AZITHROMYCIN 500 MG in DEXTROSE 5% IN WATER 250 ML IV SCH (09:17)
[2021-05-30] MEDS: FORMOTEROL 4.8 MCG INH SCH ×2 (09:18→21:33)
[2021-05-30] MEDS: [UNRECOGNIZED DRUG - OTHER] INH SCH ×2 (09:18→21:33)
[2021-05-30] MEDS: BUDESONIDE 160 MCG INH SCH ×2 (09:18→21:33)
--- NOTE | 2021-05-30 11:42 | Internal Med Progress Note ---
SUBJECTIVE Subjective Patient information: Note initiated : 05/30/21 at 11:37 am Service Date, if different from initiated Date: [] Patient: Maximo De La Cruz a 80 y/o M admitted on 05/29/21 for SOB, fatigue. Chief Complaint: [] Interval history: Mr. De La Cruz is a 80 year old M h/o COPD, CHF, ALEJANDRA on CPAP, atrial fibrillation on anticoagulant, HTN, HLD, CKDIII, p/w 1 week history of acute on chronic respiratory failure with productive cough. He had similar episode in 2020 when he presented to urgent care facility and was being treated with Prednisone w/o antibiotics as per urgent care documentations. He is vaccinated against CoVID pneumonia. He uses home oxygen baseline 2L/min, but he has to turn it up to 5L/min over the past week. He is also c/o increasing degree of shortness of breath, together with productive cough with clear sputun. Denies any respiratory wheezing. Denies any chest pain or palpitation. Denies any fever, chills, or sweating. Denies any anxiety or agitation. Vital signs at ED presentations significant for tachypnea with RR up to the upper 20s bpm, rest of the vital signs within normal limits. Labs significant for lack of leukocytosis with WBC 8.9. Lactic acid 1.1. Serum Cr level 1.5 which is around his baseline. BNP 1242. UA does not suggest presence of UTI. [place] test negative. CXR showing moderate left basilar infiltrate with small effusion. 05/30: Afebrile overnight. On CPAP last night for ALEJANDRA, baseline. Currently on 5L/min oxygen, also baseline. [place] negative. Cultures no growth to date. Improving d egree of shortness of breath. Denies cough or wheezing. Denies chest pain. Denies fever, chills, or sweating. Constitutional Vitals: Vital Signs Temp Pulse Resp BP Pulse Ox 36.5 C 76 20 130/64 95 05/30/21 07:38 05/30/21 07:38 05/30/21 07:38 05/30/21 07:38 05/30/21 07:38 Period Temp Pulse Resp BP Sys/Maki Pulse Ox Last 24 Hr 36.2 C-37.4 C 28-102 - 117-164/63-103 93-100 Intake and Output 05/29/21 05/30/21 05/30/21 21:59 05:59 13:59 Intake Total 480 0 Output Total 300 0 100 Balance 180 0 -100 Weight 85.366 kg 85.366 kg Patient Weight 05/31/21 05:59 Weight 85.366 kg Intake & Output: Intake & Output 05/29/21 05/30/21 05/30/21 21:59 05:59 13:59 Intake Total 480 0 Output Total 300 0 100 Balance 180 0 -100 Weight 85.366 kg 85.366 kg Intake: Oral 480 0 Output: Void Amount 300 0 100 Other: Meal Lunch Percent of Meal Consumed 100% Feeding Ability Independent General appearance: average body habitus, cooperative and no acute distress Head Head exam: Present atraumatic and normal inspection Eye Eye exam: Present normal appearance ENT ENT exam: Present mucous membranes moist, normal exam and normal external ear exam Additional comments: Nasal cannula in place Neck Neck exam: Present normal inspection Respiratory Respiratory exam: Present decreased breath sounds Cardiovascular Cardiovascular exam: Present irregular rhythm GI/Abdominal GI/Abdominal exam: Present normal bowel sounds Back Exam Back exam: Present normal inspection Neurological Exam Neurological exam: Present alert and oriented X3 Skin Skin exam: Present intact and warm OBJ DATA Labs CBC & Chem 7: 05/30/21 06:50 05/30/21 06:50 Labs: Abnormal Lab Results 05/30/21 05/30/21 05/29/21 06:50 06:50 11:29 RBC 3.84 L Hgb 10.5 L Hct 32.2 L RDW 14.6 H Neut % (Auto) 81.4 H Lymph % (Auto) 9.4 L Lymph # (Auto) 0.64 L Seg Neutrophils % Lymphocytes % Sodium Chloride 93 L BUN 36 H Creatinine 1.6 H Glucose 193 H Hemoglobin A1c NT-Pro-B Natriuret Pep Globulin 4.1 H Albumin/Globulin Ratio 0.8 L Procalcitonin Urine Protein 100 A Urine Ketones 20 A Urine Urobilinogen 2.0 A Hyaline Casts 4 H Urine Mucus Few A 05/29/21 05/29/21 05/29/21 10:21 10:21 10:21 RBC Hgb Hct RDW Neut % (Auto) Lymph % (Auto) Lymph # (Auto) Seg Neutrophils % Lymphocytes % Sodium 132 L Chloride 93 L BUN 29 H Creatinine 1.5 H Glucose 120 H Hemoglobin A1c 6.9 H NT-Pro-B Natriuret Pep 1242.0 H Globulin 3.8 H Albumin/Globulin Ratio Procalcitonin 0.15 H Urine Protein Urine Ketones Urine Urobilinogen Hyaline Casts Urine Mucus 05/29/21 10:21 RBC 4.07 L Hgb 11.2 L Hct 34.9 L RDW 14.8 H Neut % (Auto) Lymph % (Auto) Lymph # (Auto) Seg Neutrophils % 85 H Lymphocytes % 9 L Sodium Chloride BUN Creatinine Glucose Hemoglobin A1c NT-Pro-B Natriuret Pep Globulin Albumin/Globulin Ratio Procalcitonin Urine Protein Urine Ketones Urine Urobilinogen Hyaline Casts Urine Mucus Meds: Medications Acetaminophen (Acetaminophen 325 Mg Tablet) 650 mg PO Q6HP PRN; Protocol PRN Reason: Per Pain Protocol/Fever > 101 Albuterol Sulfate (Albuterol Sulfate 2.5 Mg/3 Ml Nebulizer) 2.5 mg NEB Q2HP PRN PRN Reason: Shortness Of Breath Albuterol/Ipratropium (Ipratropium/Albuterol 3 Ml Ampul.Neb) 3 ml NEB Q4HRT [facility] Last Admin: 05/30/21 11:36 Dose: 3 ml Documented by: Atorvastatin Calcium (Atorvastatin 10 Mg Tablet) 10 mg PO DAILY [facility] Last Admin: 05/30/21 09:16 Dose: 10 mg Documented by: Budesonide (Budesonide 0.5 Mg/2 Ml Ampul.Neb) 0.5 mg NEB BID [facility] Last Admin: 05/30/21 07:02 Dose: 0.5 mg Documented by: Ceftriaxone Sodium (Ceftriaxone 1 Gm Vial) 1 gm IV DAILY [facility] Last Admin: 05/30/21 09:16 Dose: 1 gm Documented by: Dextrose (Dextrose 50% 50 Ml Vial) 0 ml IV UD PRN PRN Reason: Hypoglycemia Diagnostic Test (Pha) (Accu-Chek 1 Each Strip) 1 each FS ACHS [facility] Last Admin: 05/30/21 07:30 Dose: 1 each Documented by: Diltiazem HCl (Diltiazem 240 Mg Cap.Xl.24h) 240 mg PO QDAY [facility] Last Admin: 05/30/21 09:15 Dose: 240 mg Documented by: Docusate Sodium (Docusate Sodium 100 Mg Capsule) 100 mg PO BID [facility] Last Admin: 05/30/21 09:16 Dose: 100 mg Documented by: Ferrous Sulfate (Ferrous Sulfate 325 Mg Tablet) [facility] Admin: 05/30/21 07:46 Dose: 325 mg Documented by: Fluoxetine HCl (Fluoxetine Hcl 20 Mg Capsule) 20 mg PO QDAY [facility] Last Admin: 05/30/21 09:16 Dose: 20 mg Documented by: Furosemide (Furosemide 40 Mg Tablet) 40 mg PO QAM [facility] Last Admin: 05/30/21 09:15 Dose: 40 mg Documented by: Gabapentin (Gabapentin 300 Mg Capsule) 300 mg PO BID [facility] Last Admin: 05/30/21 09:15 Dose: 300 mg Documented by: Glipizide (Glipizide 5 Mg Tablet) 5 mg PO ACB [facility] Last Admin: 05/30/21 07:46 Dose: 5 mg Documented by: Glucose (Dextrose 31 Gm Oral.Susp) 15 gm PO PRN PRN PRN Reason: Hypoglycemia Guaifenesin (Guaifenesin/Dextromethorphan Oral Tanisha) 10 ml PO Q4HP PRN PRN Reason: Cough Hydralazine HCl (Hydralazine 20 Mg/Ml Vial) 10 mg IV Q4-6HP PRN PRN Reason: Hypertension Hydrochlorothiazide (Hydrochlorothiazide 25 Mg Tablet) 25 mg PO QDAY [facility] Last Admin: 05/30/21 09:15 Dose: 25 mg Documented by: Azithromycin 500 mg/ Dextrose 250 mls @ 250 mls/hr IV DAILY [facility]; Protocol Stop: 05/31/21 09:59 Last Admin: 05/30/21 09:17 Dose: 250 mls/hr Documented by: Insulin Glargine (Insulin Glargine, Human 1 Unit/0.01 Ml) 20 unit SQ [facility] Last Admin: 05/29/21 21:56 Dose: 20 units Documented by: Insulin Human Lispro (Insulin Lispro 1 Unit/0.01 Ml Unit) 0 unit SQ [facility]; Protocol Last Admin: 05/30/21 07:46 Dose: 2 units Documented by: Lisinopril (Lisinopril 20 Mg Tablet) 40 mg PO DAILY [facility] Last Admin: 05/30/21 09:15 Dose: 40 mg Documented by: Ondansetron HCl (Ondansetron 4 Mg/2 Ml Vial) 4 mg IV Q6HP PRN PRN Reason: Nausea And Vomiting Budesonide 160 Mcg- Glycopyrolate 9 Mcg- Formoterol 4.8 Mcg[ Breztri Aerosphere] Inhaler 1 dose INH BID [facility] Last Admin: 05/30/21 09:18 Dose: Not Given Documented by: Prednisone (Prednisone 20 Mg Tablet) 40 mg PO [facility] Last Admin: 05/30/21 07:46 Dose: 40 mg Documented by: Rivaroxaban (Rivaroxaban 15 Mg Tablet) 15 mg PO [facility] Last Admin: 05/30/21 07:46 Dose: 15 mg Documented by: Senna (Sennosides 1 Tablet) 2 tab PO HS [facility] Last Admin: 05/29/21 21:51 Dose: 2 tab Documented by: Sodium Chloride (0.9 % Sodium Chloride 10 Ml Syringe) 10 ml IV Q8 [facility] Last Admin: 05/29/21 22:50 Dose: 10 ml Documented by: Tamsulosin HCl (Tamsulosin 0.4 Mg Capsule) 0.4 mg PO QDAY [facility] Last Admin: 05/30/21 09:15 Dose: 0.4 mg Documented by: Trazodone HCl (Trazodone Hcl 50 Mg Tablet) 25 mg PO HSP PRN PRN Reason: Insomnia Vitamin D (Vitamin D3 25 Mcg Tablet) 50 mcg PO DAILY [facility] Last Admin: 05/30/21 09:15 Dose: 50 mcg Documented by: A/P Assessment and plan (1) Community acquired pneumonia: Status: Acute (2) Acute exacerbation of chronic obstructive airways disease: Status: Chronic (3) CHF (congestive heart failure): Status: Acute (4) Anemia due to stage 3b chronic kidney disease: Status: Chronic (5) Hypertension in stage 3 chronic kidney disease due to type 2 diabetes mellitus: Status: Acute (6) Permanent atrial fibrillation: Status: Acute (7) Type 2 diabetes mellitus: Status: Chronic (8) Obstructive sleep apnea syndrome: Status: Chronic (9) Essential hypertension: Status: Chronic (10) Mixed dyslipidemia: Status: Acute Narrative A/P Narrative: Assessment and Plans: 1. Community acquired pneumonia (LLL): Stays in inpatient med surg Lactic acid 1.1 Procalcitonin 0.15 Blood culture, no growth to date [place] test negative cbc w/ auto diff in the morning to trend WBC Tylenol PRN fever Robitussin DM PRN cough Rocephin Zithromax Supplemental oxygen therapy, titrate to achieve spo2>=88% given COPD-er, currently on 5L/min (baseline) 2. COPD exacerbation: Supplemental oxygen therapy, titrate to achieve spo2>=88% given COPD-er, currently on 5L/min (baseline) Prednisone DuoNEB NEB q4hr scheduled Albuterol NEB q2hr PRN wheezing 3. Atrial fibrillation: Diltiazem Xarelto 4. CHF, stable: Supplemental oxygen therapy, titrate to achieve spo2>=88% given COPD-er, curr ently on 5L/min (baseline) Lasix HCTZ Lisinopril 5. T2DM: HgA1c 6.9 Hold Metformin Glipizide Insulin Lantus 20 unit HS Low dose correctional scale insulin AC HS Accu Chek AC HS Hypoglycemia protocol Diabetic diet 6. ALEJANDRA on CPAP: CPAP at night while sleeping 7. Essential HTN: Lisinopril Diltiazem HCTZ Lasix Hydralazine 10mg IV q4-6hr PRN SBP>=180 and/or DBP>=110mmHg 8. Mixed dyslipidemia: Continue statin therapy 9. CKD III: Serum Cr level 1.6 at around baseline Avoid nephrotoxic agents Lisinopril Saline lock with diuretics as part of the treatment of CHF CMP in the morning to trend kidney functions GI ppx: not currently indicated DVT ppx: Heparin Code status: Full Prognosis: Guarded Disposition: inpatient med surg Time Spent With Patient Time: Total time spent is greater than 50% in coordination of care (as documented) at patient's floor/unit and/or counseling patient: Total time spent with greater than 50% in coordination of care (as documented) at patient's floor/unit and/or counseling patient:: Greater than 35 minutes QUALITY VTE Deep Vein Thrombosis/Pulmonary Embolism Present on Admission: No
[2021-05-30] MEDS: 0.9 % SODIUM CHLORIDE 10 ML SYRINGE IV SCH ×3 (16:50→21:31)
[2021-05-30] MEDS: INSULIN GLARGINE, HUMAN 1 UNIT/0.01 ML SQ SCH (21:30)
[2021-05-30] MEDS: SENNOSIDES 1 TABLET PO SCH (21:33)
[2021-05-31] MEDS: IPRATROPIUM/ALBUTEROL 3 ML AMPUL.NEB NEB SCH ×2 (04:22→07:19)
[2021-05-31 06:45] LABS: Basophils # (Auto) 0.01 K/mcL (0.00-0.30); Basophils % (Auto) 0.1 % (0.0-2.0); Eosinophils # (Auto) 0.01 K/mcL (0.00-0.70); Eosinophils % (Auto) 0.1 % (0.0-7.0); Hemoglobin 9.5 g/dL (13.7-17.5); Lymphocytes # (Auto) 1.21 K/mcL (1.50-4.80); Mean Cell Volume 82.6 fL (80.0-100.0); Mean Corpuscular HGB Conc 32.8 g/dL (31.0-36.0); Mean Platelet Volume 9.6 fL (7.4-10.4); Monocytes # (Auto) 0.73 K/mcL (0.10-0.90); Monocytes % (Auto) 8.5 % (1.0-12.0); Neutrophils % (Auto) 77.3 % (38.0-78.0); Platelet Count 241 K/mcL (140-440); RBC 3.51 M/mcL (4.63-6.08); Red Cell Distribution Width 14.4 % (11.5-14.5); WBC 8.6 K/mcL (4.5-11.0)
[2021-05-31 07:16] LABS: Phosphorous 3.3 mg/dL (2.5-4.5)
[2021-05-31] MEDS: BUDESONIDE 0.5 MG/2 ML AMPUL.NEB NEB SCH (07:19)
[2021-05-31 07:28] LABS: ALT/SGPT 8 U/L (<40); AST/SGOT 9 U/L (<40); Albumin 3.1 gm/dL (3.2-5.2); Albumin/Globulin Ratio 0.8 (1.0-2.3); Alkaline Phosphatase 67 U/L (39-117); Bilirubin,Total 0.2 mg/dL (0.1-1.0); Blood Urea Nitrogen 47 mg/dL (8-23); Calcium 8.4 mg/dL (8.6-10.4); Carbon Dioxide 27 mmol/L (22-30); Chloride 90 mmol/L (96-108); Globulin 3.7 gm/dL (2.2-3.7); Glomerular Filtration Rate 35; Glucose 220 mg/dL (70-105)
[2021-05-31] MEDS: predniSONE 20 MG TABLET PO SCH (08:48)
[2021-05-31] MEDS: FUROSEMIDE 40 MG TABLET PO SCH (08:48)
[2021-05-31] MEDS: GABAPENTIN 300 MG CAPSULE PO SCH (08:48)
[2021-05-31] MEDS: VITAMIN D3 25 MCG TABLET PO SCH (08:49)
[2021-05-31] MEDS: ATORVASTATIN 10 MG TABLET PO SCH (08:49)
[2021-05-31] MEDS: RIVAROXABAN 15 MG TABLET PO SCH (08:49)
[2021-05-31] MEDS: glipiZIDE 5 MG TABLET PO SCH (08:49)
[2021-05-31] MEDS: DOCUSATE SODIUM 100 MG CAPSULE PO SCH (08:49)
[2021-05-31] MEDS: HYDROCHLOROTHIAZIDE 25 MG TABLET PO SCH (08:49)
[2021-05-31] MEDS: FERROUS SULFATE 325 MG TABLET PO SCH (08:49)
[2021-05-31] MEDS: TAMSULOSIN 0.4 MG CAPSULE PO SCH (08:49)
[2021-05-31] MEDS: ARIPIPRAZOLE 5 MG TABLET PO SCH (08:49)
[2021-05-31] MEDS: LISINOPRIL 20 MG TABLET PO SCH (08:49)
[2021-05-31] MEDS: FLUoxetine HCL 20 MG CAPSULE PO SCH (08:49)
[2021-05-31] MEDS: AZITHROMYCIN 500 MG in DEXTROSE 5% IN WATER 250 ML IV SCH (08:49)
[2021-05-31] MEDS: INSULIN LISPRO 1 UNIT/0.01 ML UNIT SQ SCH ×2 (08:50→13:14)
[2021-05-31] MEDS: cefTRIAXone 1 GM VIAL IV SCH (08:50)
[2021-05-31] MEDS: 0.9 % SODIUM CHLORIDE 10 ML SYRINGE IV SCH ×2 (08:51→13:15)
[2021-05-31] MEDS: [UNRECOGNIZED DRUG - OTHER] INH SCH (08:51)
[2021-05-31] MEDS: DILTIAZEM 240 MG CAP.XL.24H PO SCH (08:51)
[2021-05-31] MEDS: BUDESONIDE 160 MCG INH SCH (08:51)
[2021-05-31] MEDS: FORMOTEROL 4.8 MCG INH SCH (08:51)
--- NOTE | 2021-05-31 10:29 | Discharge Summary ---
Discharge Provider Provider Patient information: Note initiated : 05/31/21 at 10:24 am Service Date, if different from initiated Date: [] Patient: Maximo De La Cruz 80 y/o M admitted on 05/29/21 for SOB, fatigue. Chief Complaint: [] Date of admission: 05/29/21 13:54 Discharge date: 05/31/21 Primary care physician: Hadley Hernandez DO Attending physician on admission: Enrique Shaffer Consults: 05/29/21 Consult to Physician [CONS] Stat Comment: Consulting Provider: Enrique Shaffer Reason For Exam: Physician to Consult Attending physician on discharge: Enrique Shaffer Discharge Meds Discharge Medications Home Medications blood sugar diagnostic #20 each 07/08/17 [History Confirmed 02/13/21 Last Taken Unknown] gabapentin 300 mg capsule 300 mg PO BID cap 07/08/17 [History Confirmed 05/29/21 Last Taken 05/28/21] hydrochlorothiazide 25 mg tablet 25 mg PO QDAY 07/08/17 [History Confirmed 05/29/21 Last Taken 05/28/21] insulin glargine 100 unit/mL (3 mL) subcutaneous pen (Lantus Solostar U-100 Insulin) 20 unit SUB-Q QHS ml 07/08/17 [History Confirmed 05/29/21 Last Taken 05/27/21] lancets #50 each 07/08/17 [History Confirmed 02/13/21 Last Taken Unknown] lisinopril 40 mg tablet 40 mg PO QDAY 07/08/17 [History Confirmed 05/29/21 Last Taken 05/28/21] tamsulosin 0.4 mg capsule (Flomax) 0.4 mg PO QDAY #30 cap 03/24/18 [Rx Confirmed 05/29/21 Last Taken 05/28/21] albuterol sulfate 90 mcg/actuation aerosol inhaler (ProAir HFA) 2 puff INHALATION .Q4-6H PRN #18 g 07/24/18 [Rx Confirmed 05/29/21 Last Taken 05/28/21] cholecalciferol (vitamin D3) 50 mcg (2,000 unit) capsule 2,000 unit PO QDAY #90 cap 10/20/18 [Rx Confirmed 05/29/21 Last Taken 05/27/21] CPAP #1 ea 12/18/18 [History Confirmed 02/13/21 Last Taken Unknown] diltiazem HCl 240 mg capsule,extended release 24 hr 240 mg PO QDAY #90 cap 05/24/20 [Rx Confirmed 05/29/21 Last Taken 05/28/21] budesonide 160 mcg-glycopyr 9 mcg-formot 4.8 mcg/actuation HFA inhaler (Breztri Aerosphere) 2 inh INHALATION BID 06/23/20 [History Confirmed 05/29/21 Last Taken 05/22/21] ipratropium 0.5 mg-albuterol 3 mg (2.5 mg base)/3 mL nebulization soln 3 ml INHALATION QID #180 ml NS 06/29/20 [Rx Confirmed 05/29/21 Last Taken 05/22/21] budesonide 0.5 mg/2 mL suspension for nebulization 0.5 mg (2 mL) INHALATION BID #60 ml NS 10/20/20 [Rx Confirmed 05/29/21 Last Taken 05/22/21] aripiprazole 5 mg tablet 5 mg PO QDAY 02/13/21 [History Confirmed 05/29/21 Last Taken 05/28/21] ferrous sulfate 325 mg (65 mg iron) tablet,delayed release 325 mg PO QDAY #90 tab 02/13/21 [Rx Confirmed 05/29/21 Last Taken 05/28/21] fluoxetine 20 mg capsule 20 mg PO QDAY 02/13/21 [History Confirmed 05/29/21 Last Taken 05/28/21] furosemide 40 mg tablet 40 mg PO QAM 02/13/21 [History Confirmed 05/29/21 Last Taken 05/29/21] glipizide 5 mg tablet 5 mg PO QDAY tab 02/13/21 [History Confirmed 05/29/21 Last Taken 05/28/21] lovastatin 40 mg tablet 40 mg PO QDAY 02/13/21 [History Confirmed 05/29/21 Last Taken 05/28/21] metformin 1,000 mg tablet 1,000 mg PO BID tab 02/13/21 [History Confirmed 05/29/21 Last Taken 05/28/21] rivaroxaban 20 mg tablet (Xarelto) 20 mg PO QDAY tab 02/13/21 [History Confirmed 05/29/21 Last Taken 05/28/21] sildenafil 100 mg tablet (Viagra) 100 mg PO QDAY PRN 02/13/21 [History Confirmed 05/29/21 Last Taken 05/28/21] dextromethorphan-guaifenesin 10 mg-100 mg/5 mL oral liquid (Robafen DM Cough) 10 ml PO Q4HP PRN #500 ml 05/31/21 [Rx Last Taken Unknown] levofloxacin 750 mg tablet 750 mg PO Q24H #7 tab 05/31/21 [Rx Last Taken Unknown] prednisone 20 mg tablet 40 mg PO [facility] #2 tab 05/31/21 [Rx Last Taken Unknown] COURSE Hospital Course Hospital course: Mr. De La Cruz is a 80 year old M h/o COPD, CHF, ALEJANDRA on CPAP, atrial fibrillation on anticoagulant, HTN, HLD, CKDIII, p/w 1 week history of acute on chronic respiratory failure with productive cough. He had similar episode in 2020 when he presented to urgent care facility and was being treated with Prednisone w/o antibiotics as per urgent care documentations. He is vaccinated against CoVID pneumonia. He uses home oxygen baseline 2L/min, but he has to turn it up to 5L/min over the past week. He is also c/o increasing degree of shortness of breath, together with productive cough with clear sputun. Denies any respiratory wheezing. Denies any chest pain or palpitation. Denies any fever, chills, or sweating. Denies any anxiety or agitation. Vital signs at ED presentations significant for tachypnea with RR up to the upper 20s bpm, rest of the vital signs within normal limits. Labs significant for lack of leukocytosis with WBC 8.9. Lactic acid 1.1. Serum Cr level 1.5 which is around his baseline. BNP 1242. UA does not suggest presence of UTI. [place] test negative. CXR showing moderate left basilar infiltrate with small effusion. 05/30: Afebrile overnight. On CPAP last night for ALEJANDRA, baseline. Currently on 5L/min oxygen, also baseline. [place] negative. Cultures no growth to date. Improving degree of shortness of breath. Denies cough or wheezing. Denies chest pain. Denies fever, chills, or sweating. 05/31: Reached clinical stability. Been afebrile for more than 24horus, any leukocytosis resolved, tolerating room air, all cultures no growth to date. Decision made to discharge patient home with Rx antibiotics and prednisone given to him. PCP 2 week follow up appointment made for him. All questions answered prior to patient being physically discharged. Discharge diagnosis: CAP, COPD exacerbation Time Spent with Patient Time attestation: Total time spent providing and/or coordinating discharge services: Time spent: Less than 30 minutes EXAM Constitutional Vitals: Temp Pulse Resp BP Pulse Ox 36.4 C 71 20 103/62 93 05/31/21 07:38 05/31/21 07:38 05/31/21 07:38 05/31/21 07:38 05/31/21 07:38 General appearance: cooperative and no acute distress Head Head exam: Present atraumatic and normocephalic Eye Eye exam: Present EOMI and PERRL ENT ENT exam: Present mucous membranes moist, normal exam and normal external ear exam Neck Neck exam: Present normal inspection; Absent lymphadenopathy, tenderness or thyromegaly Respiratory Respiratory exam: Present rhonchi; Absent accessory muscle use, respiratory distress or wheezes Cardiovascular Cardiovascular exam: Present normal rate and rhythm; Absent JVD GI/Abdominal GI/Abdominal exam: Present normal bowel sounds and soft; Absent organomegaly or tenderness Rectal Rectal exam: Present deferred Extremities Exam Extremities exam: Present full ROM, normal capillary refill and normal inspection; Absent tenderness Neurological Exam Neurological exam: Present alert, CN II-XII intact and oriented X3; Absent motor sensory deficit Psychiatric Psychiatric exam: Present normal affect and normal mood; Absent anxious or depressed Skin Skin exam: Present dry and intact Discharge Data Data Completed and Pending Labs on day of discharge: Labs from last 24 hours 05/31/21 05/31/21 05:16 05:15 WBC 8.6 RBC 3.51 L Hgb 9.5 L Hct 29.0 L MCV 82.6 MCH 27.1 MCHC 32.8 RDW 14.4 Plt Count 241 MPV 9.6 Neut % (Auto) 77.3 Lymph % (Auto) 14.0 L [place] % (Auto) 8.5 Eos % (Auto) 0.1 Baso % (Auto) 0.1 Lymph # (Auto) 1.21 L [place] # (Auto) 0.73 Eos # (Auto) 0.01 Baso # (Auto) 0.01 Absolute Neutrophils 6.67 Sodium 128 L Potassium 3.4 Chloride 90 L Carbon Dioxide 27 Anion Gap 11.0 BUN 47 H Creatinine 1.8 H GFR Calculation 35 Glucose 220 H Calcium 8.4 L Phosphorus 3.3 Magnesium 2.0 Total Bilirubin 0.2 AST 9 ALT 8 Alkaline Phosphatase 67 Total Protein 6.8 Albumin 3.1 L Globulin 3.7 Albumin/Globulin Ratio 0.8 L Preliminary micro results at discharge 05/29/21 11:01 Blood Culture - Preliminary Blood 05/29/21 10:51 Blood Culture - Preliminary Blood Discharge Plan Patient/Caregiver Discharge Instructions Activity: increase activity as tolerated Diet: Consistent Carbohydrate Prescriptions: New dextromethorphan-guaifenesin [Robafen DM Cough] 10-100 mg/5 mL Liquid 10 ml PO Q4HP PRN (Reason: Cough) Qty: 500 0RF prednisone 20 mg Tablet 40 mg PO QAMCC Qty: 2 0RF levofloxacin 750 mg tablet 750 mg PO Q24H Qty: 7 0RF Continued diltiazem HCl 240 mg capsule,extended release 24hr 240 mg PO QDAY Qty: 90 4RF ipratropium-albuterol 0.5 mg-3 mg(2.5 mg base)/3 mL solution for nebulization 3 ml INHALATION QID Qty: 180 6RF gabapentin 300 mg capsule 300 mg PO BID 0RF hydrochlorothiazide 25 mg tablet 25 mg PO QDAY 0RF insulin glargine [Lantus Solostar U-100 Insulin] 100 unit/mL (3 mL) insulin pen 20 unit SUB-Q QHS 0RF lisinopril 40 mg tablet 40 mg PO QDAY 0RF (DME) blood sugar diagnostic strip See Dose Instructions .ROUTE .MEDSUPPLY Qty: 20 0RF Rx Instructions: As directed (DME) [facility] See Dose Instructions .ROUTE .MEDSUPPLY Qty: 50 0RF Rx Instructions: As directed Xarelto 20 mg tablet 20 mg PO QDAY 0RF glipizide 5 mg tablet 5 mg PO QDAY 0RF cholecalciferol (vitamin D3) 2,000 unit capsule 2,000 unit PO QDAY Qty: 90 4RF metformin 1,000 mg tablet 1,000 mg PO BID 0RF fluoxetine 20 mg capsule 20 mg PO QDAY 0RF furosemide 40 mg tablet 40 mg PO QAM 0RF sildenafil [Viagra] 100 mg tablet 100 mg PO QDAY PRN (Reason: Dyspnea) 0RF Rx Instructions: administer 30 minutes to 4 hours before activity lovastatin 40 mg tablet 40 mg PO QDAY 0RF aripiprazole 5 mg tablet 5 mg PO QDAY 0RF ferrous sulfate 325 mg (65 mg iron) tablet,delayed release (DR/EC) 325 mg PO QDAY Qty: 90 4RF ProAir HFA 90 mcg/actuation HFA aerosol inhaler 2 puff INHALATION .Q4-6H PRN (Reason: Shortness Of Breath) Qty: 18 6RF budesonide 0.5 mg/2 mL suspension for nebulization 0.5 mg inhalation BID Qty: 60 12RF Rx Instructions: Nebulized and inhale 1 vial twice a day; rinse and clear mouth after. (DME) CPAP Qty: 1 0RF Dose Instruction: As directed Rx Instructions: As directed Breztri Aerosphere 160-9-4.8 mcg/actuation HFA aerosol inhaler 2 inh INHALATION BID 0RF tamsulosin [Flomax] 0.4 mg capsule 0.4 mg PO QDAY Qty: 30 12RF Follow Up Plan Follow up with: Hadley Hernandez DO [Primary Care Provider] - Patient Disposition: Home, Self-Care Prognosis: Good Rehab Potential: Good I certify that the patient requires SNF services: No Overall status at discharge: patient is progressing back to baseline Discharge Orders: Discharge Order (Routine); Ordered 05/31/21 Ordered By: Enrique ECKERT VTE Deep Vein Thrombosis/Pulmonary Embolism Present on Admission: No
[2021-05-31] MEDS ORDERED: IPRATROPIUM/ALBUTEROL 3 ML AMPUL.NEB NEB SCH (13:00)
[2021-05-31] MEDS ORDERED: FLU VACC QS2021-22(6MOS UP)/PF 60 MCG/0.5 ML SYRINGE IM ONE (13:30)
== END 2021-05-31 14:10 | disposition home or self-care (01) | DRG 190 ==
LOC: ED 10:04 → MEDSUR 13:54
PROVIDERS: ADMIT Internal Medicine; ATTEND Internal Medicine

== ENCOUNTER 2021-08-11 08:22 | Inpatient (IN) ==
--- NOTE | 2021-08-11 08:35 | Emergency Department Note ---
HPI General Chief complaint: Weakness Stated complaint: Cough, weakness Time Seen by Provider: 08/11/21 08:32 Source: EMS Mode of arrival: EMS Limitations: no limitations History of Present Illness HPI Narrative: Patient is a 80-year-old gentleman who arrives emergency department by ambulance complaining of weakness. The patient says he has been having worsening shortness of breath cough and generalized weakness for the past several days. This was gradual in onset and has been progressively worsening. Cough has been productive of purulent sputum. He denies any fever or chills. He has not had any associated chest pain. He had similar symptoms in May when he was diagnosed with pneumonia. He does note that he has had some peripheral edema recently but had recent titration of his medications to adjust this. He has been vaccinated against COVID-19. Related Data Home Medications Medication Instructions Recorded Confirmed blood sugar diagnostic #20 each 07/08/17 06/07/21 gabapentin 300 mg capsule 300 mg PO BID cap 07/08/17 08/11/21 hydrochlorothiazide 25 mg tablet 25 mg PO QDAY 07/08/17 08/11/21 insulin glargine 100 unit/mL (3 20 unit SUB-Q QHS ml 07/08/17 06/07/21 mL) subcutaneous pen (Lantus Solostar U-100 Insulin) lancets #50 each 07/08/17 06/07/21 lisinopril 40 mg tablet 40 mg PO QDAY 07/08/17 08/11/21 CPAP #1 ea 12/18/18 06/07/21 aripiprazole 5 mg tablet 5 mg PO QDAY 02/13/21 08/11/21 fluoxetine 20 mg capsule 20 mg PO QDAY 02/13/21 08/11/21 glipizide 5 mg tablet 5 mg PO QDAY tab 02/13/21 08/11/21 metformin 1,000 mg tablet 1,000 mg PO BID tab 02/13/21 08/11/21 pravastatin 40 mg tablet 40 mg PO QDAY 06/07/21 08/11/21 darbepoetin tramaine in polysorbat 40 40 mcg SUBCUT QMONTH ml 07/13/21 07/13/21 mcg/mL in polysorbate injection (Aranesp) budesonide 160 mcg-glycopyr 9 2 puff INHALATION DAILY 08/11/21 08/11/21 mcg-formot 4.8 mcg/actuation HFA inhaler (Breztri Aerosphere) fluticasone fur. 200 mcg-umeclid 1 inh INHALATION DAILY 08/11/21 08/11/21 62.5 mcg-vilant 25 mcg inhalat.powder (Trelegy Ellipta) rivaroxaban 20 mg tablet (Xarelto) 1 tab PO HS 08/11/21 08/11/21 Previous Rx's Medication Instructions Recorded tamsulosin 0.4 mg capsule (Flomax) 0.4 mg PO QDAY #30 cap 03/24/18 insulin aspart U-100 100 unit/mL 1 sliding scale dose SUBCUT .QID 05/31/21 (3 mL) subcutaneous pen AC #15 ml Nebulizer and supplies #1 ea 06/07/21 albuterol sulfate 90 mcg/actuation 2 puff INHALATION .Q4-6H PRN #18 g 06/07/21 aerosol inhaler (ProAir HFA) furosemide 40 mg tablet 40 mg PO QAM #90 tab 06/07/21 Allergies Allergy/AdvReac Type Severity Reaction Status Date / Time No Known Drug Allergies Allergy Verified 08/11/21 08:24 Review of Systems ROS ROS Narrative: Narrative: All systems ED: reviewed and negative except as stated. 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) CHF (congestive heart failure) (Acute) Hyperkalemia, diminished renal excretion (Acute) Chronic kidney disease (CKD) stage G3b/A2, moderately decreased glomerular filtration rate (GFR) between 30-44 mL/min/1.73 square meter and albuminuria creatinine ratio between 30-299 mg/g (Chronic) Localized edema due to fluid overload (Chronic) Hypertension in stage 3 chronic kidney disease due to type 2 diabetes mellitus (Acute) AMADOR (dyspnea on exertion) (Chronic) COPD (chronic obstructive pulmonary disease) (Chronic) Vitamin D deficiency (Chronic) Secondary hyperparathyroidism of renal origin (Chronic) Hypoxemia (Chronic) Increased frequency of urination (Chronic) Benign prostatic hyperplasia (Chronic) Atrial flutter (Chronic) CVA (cerebral vascular accident) (Chronic) Acute exacerbation of chronic obstructive airways disease (Chronic) Lower urinary tract infection (Chronic) Obesity (Chronic) Bladder dysfunction (Chronic) 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) History of sleep apnea (Chronic) Hypoxia (Chronic) A-fib (Chronic) 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) Hypogonadism (Chronic) Persistent microalbuminuria associated with type 2 diabetes mellitus (Chronic) Overactive bladder (Chronic) Deep venous thrombosis (Chronic) Bradycardia (Chronic) Pulmonary embolism (Chronic) Essential hypertension (Chronic) Obstructive sleep apnea syndrome (Chronic) Hyperlipidemia (Chronic) Diabetic peripheral neuropathy (Chronic) Type 2 diabetes mellitus (Chronic) Diabetes mellitus (Chronic) Moderate chronic obstructive pulmonary disease (Chronic) Medical History A-fib Acute exacerbation of chronic obstructive airways disease Atrial flutter Benign prostatic hyperplasia Bladder dysfunction Bradycardia CHF (congestive heart failure) COPD (chronic obstructive pulmonary disease) CVA (cerebral vascular accident) Deep venous thrombosis Diabetes mellitus Diabetic peripheral neuropathy AMADOR (dyspnea on exertion) Essential hypertension History of cocaine abuse History of tobacco use Hyperlipidemia Hypogonadism Hypoxemia Hypoxia Increased frequency of urination 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 Lower urinary tract infection Median neuropathy Moderate chronic obstructive pulmonary disease Obesity Obstructive sleep apnea syndrome Overactive bladder Persistent microalbuminuria associated with type 2 diabetes mellitus Pulmonary embolism Respiratory distress Type 2 diabetes mellitus Ulnar nerve entrapment Ulnar neuropathy Surgical History History of carpal tunnel surgery (06/03/89) History of cataract surgery History of colonoscopy with polypectomy History of heart surgery (06/03/15) History of prior ablation treatment AFIB with ablation Family History Father , age: 81 Hypertensive disorder Family history of stroke Mother , age: 89 Hypertensive disorder Family history of stroke Diabetes mellitus Sister Malignant tumor of breast Brother Family history of stroke Social History Smoking Status: Former smoker Alcohol Intake Frequency: 0-2 drinks per day Substance Use: former substance user Exam Narrative Narrative: I reviewed the vital signs. Gen -patient is awake and alert and appears somewhat uncomfortable but in no acute distress. The patient is well groomed. HEENT -head is atraumatic. There is no conjunctival pallor or scleral icterus. Mucous membranes are moist. CV -S1-S2 regular rate and rhythm. Peripheral pulses are palpable. There is moderate pitting edema bilateral lower extremities Resp -breathing is nonlabored. Lungs have coarse rhonchi bilaterally. Patient had multiple episodes of coughing during my exam. There is no cyanosis.] GI - Abdomen is soft and nontender to palpation. There is no guarding or rebound tenderness. Derm -skin is warm and diaphoretic there is no visible rash. MSK -present extremities are atraumatic. Psych -patient has appropriate affect. The patient does not appear internally stimulated. Neuro -patient answers questions appropriately with fluent speech. Patient moves all present extremities equally. General Limitations: no limitations Course Vital Signs Vital signs: Vital Signs Temperature 98.9 F 08/11/21 08:25 Pulse Rate 78 08/11/21 08:25 Respiratory Rate 20 08/11/21 08:25 Blood Pressure 124/62 08/11/21 08:25 Pulse Oximetry (%) 92 08/11/21 08:25 Temperature 98.5 F 08/11/21 13:04 Pulse Rate 56 L 08/11/21 13:04 Respiratory Rate 20 08/11/21 13:04 Blood Pressure 129/67 08/11/21 13:04 Pulse Oximetry (%) 93 08/11/21 13:04 [facility] Narrative Medical decision making narrative: I personally performed interpreted limited bedside transthoracic echocardiogram and pulmonary ultrasound. I obtained an apical four-chamber view as well as parasternal long and short axis views which were slightly impaired by patient body habitus. There is no pericardial effusion. There is normal left ventricular ejection fraction. The right ventricle appeals somewhat dilated. Lung alejandro are B-lines predominant bilaterally. Patient presents with shortness of breath and peripheral edema. Ultrasound reveals findings suggestive of pulmonary edema. Radiology interpretation of the patient's chest x-ray is appreciated. I reviewed the films myself and do note significant cephalization of the vessels which is new compared to the patient's prior x-ray findings and also consistent with pulmonary edema. BNP is elevated. I discussed the test results with the patient and recommended admission for further diuresis and he was. I did administer a dose of Lasix but as I am concerned he has pulmonary hypertension and likely some right ventricular dysfunction I do not think nitrates would be advisable given his mild symptoms and potential for significant decrease in preload. I discussed the patient's history examination and diagnostic findings with Dr. Ortega, who agrees with the plan of care and accepts admission. Lab Data Result diagrams: 08/11/21 08:51 Labs: Lab Results 08/11/21 08/11/21 08/11/21 Range/Units 08:51 08:51 08:51 WBC 10.8 (4.5-11.0) K/mcL RBC 3.68 L (4.63-6.08) M/mcL Hgb 10.8 L (13.7-17.5) g/dL Hct 32.8 L (40.1-51.0) % POC Hct 34 L (41-55) % MCV 89.1 (80.0-100.0) fL MCH 29.3 (26.0-34.0) pg MCHC 32.9 (31.0-36.0) g/dL RDW 15.6 H (11.5-14.5) % Plt Count 210 (140-440) K/mcL MPV 9.3 (7.4-10.4) fL Neut % (Auto) 86.3 H (38.0-78.0) % Lymph % (Auto) 6.5 L (15.5-49.0) % [place] % (Auto) 6.5 (1.0-12.0) % Eos % (Auto) 0.1 (0.0-7.0) % Baso % (Auto) 0.6 (0.0-2.0) % Lymph # (Auto) 0.71 L (1.50-4.80) K/mcL [place] # (Auto) 0.71 (0.10-0.90) K/mcL Eos # (Auto) 0.01 (0.00-0.70) K/mcL Baso # (Auto) 0.06 (0.00-0.30) K/mcL Absolute Neutrophils 9.35 H (1.80-8.00) K/mcL ABG Methemoglobin (0.4-1.5) % VBG pH (7.32-7.42) U VBG pCO2 (41.0-51.0) mmHg VBG pO2 (25.0-40.0) mmHg VBG HCO3 (24.0-28.0) mmol/L VBG Total CO2 (25.0-29.0) mmol/L VBG O2 Saturation (40.0-70.0) % VBG Base Excess (-2-3) Carboxyhemoglobin (0.0-1.5) % THgb Total Hemoglobin (13.5-16.5) gm/Dl POC Sodium 136 (133-145) mEq/L POC Potassium 4.4 (3.3-5.1) mEql/L POC Chloride 99 (96-108) mEq/L POC Total CO2 27 (22-30) mmol/L POC BUN 43 H (6-20) mg/dL POC Creatinine 2.1 H (0.6-1.2) mg/dL POC Glucose 195 H (70-105) mg/dL POC WB Ioniz Calcium 1.20 (1.16-1.32) mmEq/L Troponin T 0.04 H* (<0.03) ng/mL C-Reactive Protein (0.03-0.80) mg/dL NT-Pro-B Natriuret Pep 1019.0 H (<450.0) pg/mL Procalcitonin (<0.10) ng/mL 08/11/21 08/11/21 08/11/21 Range/Units 08:51 08:51 11:47 WBC (4.5-11.0) K/mcL RBC (4.63-6.08) M/mcL Hgb (13.7-17.5) g/dL Hct (40.1-51.0) % POC Hct (41-55) % MCV (80.0-100.0) fL MCH (26.0-34.0) pg MCHC (31.0-36.0) g/dL RDW (11.5-14.5) % Plt Count (140-440) K/mcL MPV (7.4-10.4) fL Neut % (Auto) (38.0-78.0) % Lymph % (Auto) (15.5-49.0) % [place] % (Auto) (1.0-12.0) % Eos % (Auto) (0.0-7.0) % Baso % (Auto) (0.0-2.0) % Lymph # (Auto) (1.50-4.80) K/mcL [place] # (Auto) (0.10-0.90) K/mcL Eos # (Auto) (0.00-0.70) K/mcL Baso # (Auto) (0.00-0.30) K/mcL Absolute Neutrophils (1.80-8.00) K/mcL ABG Methemoglobin 0.1 L (0.4-1.5) % VBG pH 7.52 H (7.32-7.42) U VBG pCO2 33.7 L (41.0-51.0) mmHg VBG pO2 118.9 H (25.0-40.0) mmHg VBG HCO3 27.1 (24.0-28.0) mmol/L VBG Total CO2 28.2 (25.0-29.0) mmol/L VBG O2 Saturation 88.3 H (40.0-70.0) % VBG Base Excess 5 H (-2-3) Carboxyhemoglobin 10.0 H (0.0-1.5) % THgb Total Hemoglobin 12.2 L (13.5-16.5) gm/Dl POC Sodium (133-145) mEq/L POC Potassium (3.3-5.1) mEql/L POC Chloride (96-108) mEq/L POC Total CO2 (22-30) mmol/L POC BUN (6-20) mg/dL POC Creatinine (0.6-1.2) mg/dL POC Glucose (70-105) mg/dL POC WB Ioniz Calcium (1.16-1.32) mmEq/L Troponin T (<0.03) ng/mL C-Reactive Protein 4.60 H (0.03-0.80) mg/dL NT-Pro-B Natriuret Pep (<450.0) pg/mL Procalcitonin 0.15 H (<0.10) ng/mL ED POC Tests ED POC Tests: SAMIRA - SARS Antigen Negative EKG Data EKG #1: EKG attestation: Yes I reviewed and interpreted this EKG. EKG results narrative: EKG performed at 8:35 AM: Atrial fibrillation, rate 71. Right axis deviation. Normal T wave morphology. No ST segment deviation. Normal QRS and QTc duration. No old EKG immediately available for comparison. EKG was interpreted by me. Discharge Plan Patient/Caregiver Discharge Instructions Pt seen by REPAIRER SASH AND DOOR/PA only: No Clinical Impression: Congestive heart failure Patient Disposition: Xfer As Inpt ([facility]) Discharge Date/Time: 08/11/21 13:04
[2021-08-11 09:02] LABS: POC Blood Urea Nitrogen 43 mg/dL (6-20); POC CO2 27 mmol/L (22-30); POC Chloride 99 mEq/L (96-108); POC Creatinine 2.1 mg/dL (0.6-1.2); POC Glucose, Random 195 mg/dL (70-105); POC Hematocrit 34 % (41-55); POC Potassium 4.4 mEql/L (3.3-5.1); POC Sodium 136 mEq/L (133-145)
[2021-08-11] MEDS ORDERED: FUROSEMIDE 100 MG/10 ML VIAL IV ONE (09:27)
[2021-08-11 09:35] LABS: Basophils # (Auto) 0.06 K/mcL (0.00-0.30); Basophils % (Auto) 0.6 % (0.0-2.0); Eosinophils # (Auto) 0.01 K/mcL (0.00-0.70); Eosinophils % (Auto) 0.1 % (0.0-7.0); Hematocrit 32.8 % (40.1-51.0); Hemoglobin 10.8 g/dL (13.7-17.5); Lymphocytes # (Auto) 0.71 K/mcL (1.50-4.80); Lymphocytes % (Auto) 6.5 % (15.5-49.0); Mean Cell Volume 89.1 fL (80.0-100.0); Mean Corpuscular HGB Conc 32.9 g/dL (31.0-36.0); Mean Platelet Volume 9.3 fL (7.4-10.4); Monocytes # (Auto) 0.71 K/mcL (0.10-0.90); Monocytes % (Auto) 6.5 % (1.0-12.0); Neutrophils % (Auto) 86.3 % (38.0-78.0); Platelet Count 210 K/mcL (140-440); RBC 3.68 M/mcL (4.63-6.08); Red Cell Distribution Width 15.6 % (11.5-14.5); WBC 10.8 K/mcL (4.5-11.0)
--- NOTE | 2021-08-11 10:02 | XRay Report ---
CLINICAL INFORMATION: History of COPD CHF. Shortness of breath COMPARISON: Baseline chest x-ray from 05/02/2018 and 05/29/2021 TECHNIQUE: PA and Lateral views FINDINGS: The heart is mildly enlarged, but unchanged. Mediastinum is unremarkable. Upper lobe pulmonary vessels are mildly distended compared to 2018 baseline exam. There is no edema. Left lower lobe infiltrate has nearly resolved since the x-ray over two months ago. There is only minimal residual airspace disease. No effusions. Mild old compression fractures mid and lower thoracic spine are stable. IMPRESSION: Mild CHF. Near complete resolution of left lower lobe infiltrate Interpreted and Authenticated by: Nicola Dias 08/11/21
[2021-08-11] MEDS ORDERED: ASPIRIN 81 MG TAB.CHEW CHEWED ONE (10:22)
--- NOTE | 2021-08-11 11:40 | Internal Med History&Physical ---
HPI History of Present Illness Patient information: Note initiated : 08/11/21 at 11:30 am Service Date, if different from initiated Date: [] Patient: Maximo De La Cruz a 80 y/o M admitted on for Cough, weakness. Chief Complaint: [] History of present illness: Mr. De La Cruz is a 80 year old male with a history of hyperlipidemia, type 2 diabetes mellitus, atrial fibrillation on Xarelto, diastolic heart failure, right ventricle enlargement, chronic kidney disease stage IIIb, chronic normocytic anemia, COPD with chronic hypoxia of 2 to 3 L/min oxygen requirement, obstructive sleep apnea on CPAP, CVA, recent pneumonia in May 2021 who presented to the emergency department for fatigue and dyspnea that has been progressively worsening for about 3 days. Patient has also been experiencing bilateral lower extremity edema that is more than his baseline for at least 1 week. In the emergency department, the patient was afebrile, hemodynamically stable, requiring 4 L/min nasal cannula oxygen and in no respiratory distress. The patient appeared to be generally weak and tired. Physical exam is most notable for bilateral lower extremity pedal edema up to his mid calf. Routine blood work shows a normal WBC, stable hemoglobin of 10.8, creatinine of 2.1 which is slightly higher than the patient's baseline of 1.6-1.8, mekol-ye-xerq glucose of 195, NT proBNP of 1019 and troponin mildly elevated at 0.04. EKG showed atrial fibrillation with a heart rate of 71, no acute ischemic changes. Hospital medicine was consulted for admission. Review of systems Constitutional: no fever, fatigue, or weight loss Eyes: no vision changes or pain Cardiovascular: no chest pain, no palpitations Respiratory: Positive for a cough productive of clear sputum and dyspnea Gastrointestinal: no abdominal pain, no nausea, vomiting, or diarrhea Genitourinary: Positive for urinary incontinence, no dysuria or difficulty voiding Musculoskeletal: Positive for bilateral lower extremity edema, no arthralgia or myalgia Integumentary: no skin lesion or wound Neurological: no focal weakness or numbness Psychiatric: no anxiety or depression Physical exam Head: Atraumatic, normal inspection. Eyes: normal appearance, no scleral icterus. Neck: full ROM Respiratory: On 4 L/min nasal cannula, no wheezing, no crackles appreciated, no respiratory distress. Cardiovascular: Irregular normal rate, S1, S2. GI/Abdominal: soft, nontender, no guarding. Extremities: Bilateral lower extremity pedal edema up to mid calf, full range of motion, nontender. Neurological: CN II-XII intact, intact motor, intact sensation. Psychiatric: normal mood. Skin: warm, normal color PFSH PFSH All Active Problems Hyponatremia (Chronic) Mixed dyslipidemia (Acute) Permanent atrial fibrillation (Acute) Community acquired pneumonia (Acute) COPD (chronic obstructive pulmonary disease) (Chronic) CHF exacerbation (Acute) Weakness (Acute) Iron deficiency anemia, unspecified (Chronic) Anemia due to stage 3b chronic kidney disease (Chronic) CHF (congestive heart failure) (Acute) Hyperkalemia, diminished renal excretion (Acute) Chronic kidney disease (CKD) stage G3b/A2, moderately decreased glomerular filtration rate (GFR) between 30-44 mL/min/1.73 square meter and albuminuria creatinine ratio between 30-299 mg/g (Chronic) Localized edema due to fluid overload (Chronic) Hypertension in stage 3 chronic kidney disease due to type 2 diabetes mellitus (Acute) AMADOR (dyspnea on exertion) (Chronic) COPD (chronic obstructive pulmonary disease) (Chronic) Vitamin D deficiency (Chronic) Secondary hyperparathyroidism of renal origin (Chronic) Hypoxemia (Chronic) Increased frequency of urination (Chronic) Benign prostatic hyperplasia (Chronic) Atrial flutter (Chronic) CVA (cerebral vascular accident) (Chronic) Acute exacerbation of chronic obstructive airways disease (Chronic) Lower urinary tract infection (Chronic) Obesity (Chronic) Bladder dysfunction (Chronic) 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) History of sleep apnea (Chronic) Hypoxia (Chronic) A-fib (Chronic) 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) Hypogonadism (Chronic) Persistent microalbuminuria associated with type 2 diabetes mellitus (Chronic) Overactive bladder (Chronic) Deep venous thrombosis (Chronic) Bradycardia (Chronic) Pulmonary embolism (Chronic) Essential hypertension (Chronic) Obstructive sleep apnea syndrome (Chronic) Hyperlipidemia (Chronic) Diabetic peripheral neuropathy (Chronic) Type 2 diabetes mellitus (Chronic) Diabetes mellitus (Chronic) Moderate chronic obstructive pulmonary disease (Chronic) Medical History A-fib Acute exacerbation of chronic obstructive airways disease Atrial flutter Benign prostatic hyperplasia Bladder dysfunction Bradycardia CHF (congestive heart failure) COPD (chronic obstructive pulmonary disease) CVA (cerebral vascular accident) Deep venous thrombosis Diabetes mellitus Diabetic peripheral neuropathy AMADOR (dyspnea on exertion) Essential hypertension History of cocaine abuse History of tobacco use Hyperlipidemia Hypogonadism Hypoxemia Hypoxia Increased frequency of urination [facility] current use of anticoagulant Lower urinary tract infection Median neuropathy Moderate chronic obstructive pulmonary disease Obesity Obstructive sleep apnea syndrome Overactive bladder Persistent microalbuminuria associated with type 2 diabetes mellitus Pulmonary embolism Respiratory distress Type 2 diabetes mellitus Ulnar nerve entrapment Ulnar neuropathy Surgical History History of carpal tunnel surgery (06/03/89) History of cataract surgery History of colonoscopy with polypectomy History of heart surgery (06/03/15) History of prior ablation treatment AFIB with ablation Family History Father , age: 81 Hypertensive disorder Family history of stroke Mother , age: 89 Hypertensive disorder Family history of stroke Diabetes mellitus Sister Malignant tumor of breast Brother Family history of stroke Social History education level: high school occupational status: retired sexually active: Yes physical activity: none smoking status: Former smoker quit date: 06/03/99 pack-years: 40 smoking status stop date: 06/03/09 quit status: quit date established alcohol intake frequency: 0-2 drinks per day substance use type: former substance user seatbelt use: always firearms in home: Yes MEDS/ALLERGIES Home Medications and Allergies Home Medications Medication Instructions Recorded Confirmed Type blood sugar diagnostic #20 each 07/08/17 06/07/21 History gabapentin 300 mg capsule 300 mg PO BID cap 07/08/17 08/11/21 History hydrochlorothiazide 25 mg tablet 25 mg PO QDAY 07/08/17 06/07/21 History insulin glargine 100 unit/mL (3 20 unit SUB-Q QHS ml 07/08/17 06/07/21 History mL) subcutaneous pen (Lantus Solostar U-100 Insulin) lancets #50 each 07/08/17 06/07/21 History lisinopril 40 mg tablet 40 mg PO QDAY 07/08/17 08/11/21 History tamsulosin 0.4 mg capsule (Flomax) 0.4 mg PO QDAY #30 cap 03/24/18 06/07/21 Rx cholecalciferol (vitamin D3) 50 2,000 unit PO QDAY #90 cap 10/20/18 06/07/21 Rx mcg (2,000 unit) capsule CPAP #1 ea 12/18/18 06/07/21 History diltiazem HCl 240 mg 240 mg PO QDAY #90 cap 05/24/20 06/07/21 Rx capsule,extended release 24 hr budesonide 0.5 mg/2 mL suspension 0.5 mg (2 mL) INHALATION BID #60 10/20/20 06/07/21 Rx for nebulization ml NS aripiprazole 5 mg tablet 5 mg PO QDAY 02/13/21 06/07/21 History ferrous sulfate 325 mg (65 mg 325 mg PO QDAY #90 tab 02/13/21 06/07/21 Rx iron) tablet,delayed release fluoxetine 20 mg capsule 20 mg PO QDAY 02/13/21 08/11/21 History glipizide 5 mg tablet 5 mg PO QDAY tab 02/13/21 06/07/21 History metformin 1,000 mg tablet 1,000 mg PO BID tab 02/13/21 08/11/21 History rivaroxaban 20 mg tablet (Xarelto) 20 mg PO QDAY tab 02/13/21 06/07/21 History sildenafil 100 mg tablet (Viagra) 100 mg PO QDAY PRN 02/13/21 06/07/21 History dextromethorphan-guaifenesin 10 10 ml PO Q4HP PRN #500 ml 05/31/21 06/07/21 Rx mg-100 mg/5 mL oral liquid (Robafen DM Cough) insulin aspart U-100 100 unit/mL 1 sliding scale dose SUBCUT .QID 05/31/21 06/07/21 Rx (3 mL) subcutaneous pen AC #15 ml levofloxacin 750 mg tablet 750 mg PO Q24H #7 tab 05/31/21 06/07/21 Rx Nebulizer and supplies #1 ea 06/07/21 06/07/21 Rx albuterol sulfate 90 mcg/actuation 2 puff INHALATION .Q4-6H PRN #18 g 06/07/21 08/11/21 Rx aerosol inhaler (ProAir HFA) budesonide 160 mcg-glycopyr 9 2 inh INHALATION BID #10.7 g 06/07/21 06/07/21 Rx mcg-formot 4.8 mcg/actuation HFA inhaler (Breztri Aerosphere) furosemide 40 mg tablet 40 mg PO QAM #90 tab 06/07/21 08/11/21 Rx pravastatin 40 mg tablet 40 mg PO QDAY 06/07/21 06/07/21 History ipratropium 0.5 mg-albuterol 3 mg 3 ml INHALATION QID PRN #360 ml NS 06/19/21 Rx (2.5 mg base)/3 mL nebulization soln darbepoetin tramaine in polysorbat 40 40 mcg SUBCUT QMONTH ml 07/13/21 07/13/21 History mcg/mL in polysorbate injection (Aranesp) Allergies Allergy/AdvReac Type Severity Reaction Status Date / Time No Known Drug Allergies Allergy Verified 08/11/21 08:24 EXAM Constitutional Vitals: Temp Pulse Resp BP Pulse Ox 98.9 F 81 20 122/59 98 08/11/21 08:25 08/11/21 10:31 08/11/21 10:31 08/11/21 10:31 08/11/21 10:31 DATA Data Completed and Pending Labs: Labs from last 24 hours 08/11/21 08/11/21 08/11/21 08:51 08:51 08:51 WBC 10.8 RBC 3.68 L Hgb 10.8 L Hct 32.8 L POC Hct 34 L MCV 89.1 MCH 29.3 MCHC 32.9 RDW 15.6 H Plt Count 210 MPV 9.3 Neut % (Auto) 86.3 H Lymph % (Auto) 6.5 L Hayes % (Auto) 6.5 Eos % (Auto) 0.1 Baso % (Auto) 0.6 Lymph # (Auto) 0.71 L Hayes # (Auto) 0.71 Eos # (Auto) 0.01 Baso # (Auto) 0.06 Absolute Neutrophils 9.35 H POC Sodium 136 POC Potassium 4.4 POC Chloride 99 POC Total CO2 27 POC BUN 43 H POC Creatinine 2.1 H POC Glucose 195 H POC WB Ioniz Calcium 1.20 Troponin T 0.04 H* NT-Pro-B Natriuret Pep 1019.0 H A/P Narrative A/P Narrative: Assessment: 80 year old male with a history of hyperlipidemia, type 2 diabetes mellitus, atrial fibrillation on Xarelto, diastolic heart failure, right ventricle enlargement, chronic kidney disease stage IIIb, chronic normocytic anemia, COPD with chronic hypoxia of 2 to 3 L/min oxygen requirement, obstructive sleep apnea on CPAP, recent pneumonia in May 2021 admitted for generalized weakness and dyspnea felt to be secondary to heart failure. #Acute on chronic diastolic heart failure #Generalized weakness #Chronic kidney disease stage IIIb #Type 2 diabetes mellitus #Atrial fibrillation on Xarelto #COPD, not in exacerbation #Obstructive sleep apnea on CPAP #Chronic hypoxia 2 to 3 L/min #Hyperlipidemia Plan -Lasix 40 mg IV twice daily. -Oxygen supplementation. -Monitor renal function, electrolytes, urine output and volume status. -Trend troponin every 3 hours x3. -Transthoracic echocardiogram. -Procalcitonin, CRP, VBG. -Iron studies, ferritin. -PANTHER pcr pending. -Correction Humalog SSI. -Scheduled duo nebs and as needed albuterol nebs pending medication reconciliat ion. -Home medication reconciliation, resume essential meds. -PT consult. -Low-sodium and consistent carbohydrate diet. -night monitor. -Bladder scan every 6 hours while on IV Lasix -DVT prophylaxis: On Xarelto -CODE STATUS: Full -Disposition: TBD Time Spent With Patient Time: Total time spent is greater than 50% in coordination of care (as documented) at patient's floor/unit and/or counseling patient:
[2021-08-11 12:19] LABS: ABG Methemoglobin 0.1 % (0.4-1.5); Total Hemoglobin 12.2 gm/Dl (13.5-16.5); VBG Base Excess 5 (-2-3); VBG HCO3 27.1 mmol/L (24.0-28.0); VBG Oxygen Saturation 88.3 % (40.0-70.0); VBG PCO2 33.7 mmHg (41.0-51.0); VBG PH 7.52 U (7.32-7.42); VBG PO2 118.9 mmHg (25.0-40.0); VBG Total CO2 28.2 mmol/L (25.0-29.0)
[2021-08-11] MEDS ORDERED: ONDANSETRON 4 MG/2 ML VIAL IV PRN (13:54)
[2021-08-11] MEDS ORDERED: IPRATROPIUM/ALBUTEROL 3 ML AMPUL.NEB NEB SCH (13:54)
[2021-08-11] MEDS ORDERED: DEXTROSE 31 GM ORAL.SUSP PO PRN (13:54)
[2021-08-11] MEDS ORDERED: DEXTROSE 50% 50 ML VIAL IV PRN (13:54)
[2021-08-11] MEDS ORDERED: ALBUTEROL SULFATE 2.5 MG/3 ML NEBULIZER NEB PRN (13:54)
[2021-08-11] MEDS ORDERED: ACETAMINOPHEN 325 MG TABLET PO PRN (13:54)
[2021-08-11] MEDS: 0.9 % SODIUM CHLORIDE 10 ML SYRINGE IV SCH ×2 (16:58→20:35)
[2021-08-11] MEDS: FUROSEMIDE 40 MG/4 ML VIAL IV SCH (16:58)
[2021-08-11] MEDS: INSULIN LISPRO 1 UNIT/0.01 ML UNIT SQ SCH ×2 (17:00→20:34)
[2021-08-11] MEDS: DOCUSATE SODIUM 100 MG CAPSULE PO SCH (20:34)
[2021-08-11] MEDS: SENNOSIDES 1 TABLET PO SCH (20:35)
[2021-08-11] MEDS ORDERED: BENZONATATE 100 MG CAPSULE PO PRN (20:56)
[2021-08-12] MEDS: 0.9 % SODIUM CHLORIDE 10 ML SYRINGE IV SCH ×3 (04:43→20:38)
[2021-08-12 07:03] LABS: Hematocrit 35.9 % (40.1-51.0); Hemoglobin 11.7 g/dL (13.7-17.5); Mean Cell Volume 90.4 fL (80.0-100.0); Mean Corpuscular HGB Conc 32.6 g/dL (31.0-36.0); Mean Platelet Volume 9.5 fL (7.4-10.4); Platelet Count 206 K/mcL (140-440); RBC 3.97 M/mcL (4.63-6.08); Red Cell Distribution Width 15.2 % (11.5-14.5); WBC 10.9 K/mcL (4.5-11.0)
[2021-08-12 07:35] LABS: ALT/SGPT 11 U/L (<40); AST/SGOT 37 U/L (<40); Albumin/Globulin Ratio 1.1 (1.0-2.3); Alkaline Phosphatase 72 U/L (39-117); Bilirubin,Direct 0.2 mg/dL (<0.3); Bilirubin,Total 0.6 mg/dL (0.1-1.0); Blood Urea Nitrogen 45 mg/dL (8-23); Calcium 9.4 mg/dL (8.6-10.4); Carbon Dioxide 26 mmol/L (22-30); Chloride 94 mmol/L (96-108); Globulin 3.8 gm/dL (2.2-3.7); Glomerular Filtration Rate 35; Glucose 128 mg/dL (70-105); Iron 17 ug/dL (61-157); Lactate Dehydrogenase 223 U/L (135-225); Phosphorous 4.5 mg/dL (2.5-4.5); TIBC Calculation 282 ug/dl (228-428); Transferrin % Saturation 6 % (20-50); Triglycerides 90 mg/dL (<150); Uric Acid 10.2 mg/dL (2.5-8.0)
[2021-08-12 07:42] LABS: Ferritin 129.2 ng/mL (30.0-400.0)
[2021-08-12 08:28] LABS: Anisocytosis 1+ (None Seen); Band Neutrophils % 7 % (0-10); Lymphocytes % 10 % (15-49); Monocytes % (Manual) 5 % (1-12); Platelet Estimate NORMAL (Normal); RBC Morphology ABNORMAL (Normal); Segmented Neutrophils % 78 % (38-78)
[2021-08-12] MEDS ORDERED: IRON SUCROSE COMPLEX 100 MG/5 ML VIAL IV SCH (09:00)
[2021-08-12] MEDS ORDERED: IRON SUCROSE COMPLEX 300 MG in 0.9 % SODIUM CHLORIDE 250 ML IV SCH (09:00)
[2021-08-12] MEDS: INSULIN LISPRO 1 UNIT/0.01 ML UNIT SQ SCH ×4 (10:00→20:36)
[2021-08-12] MEDS: DOCUSATE SODIUM 100 MG CAPSULE PO SCH ×2 (10:01→20:34)
[2021-08-12] MEDS: FUROSEMIDE 40 MG/4 ML VIAL IV SCH (10:14)
[2021-08-12] MEDS ORDERED: IPRATROPIUM/ALBUTEROL 3 ML AMPUL.NEB NEB SCH (12:00)
--- NOTE | 2021-08-12 14:40 | XRay Report ---
CLINICAL INFORMATION: Cough and dyspnea COMPARISON: 08/11/2021 TECHNIQUE: PA and Lateral views FINDINGS: The heart is mildly enlarged-increased. Mediastinum is unremarkable. Upper lobe pulmonary vessels show mild cephalization. Moderate bibasilar infiltrates noted. There is a small left pleural effusion. IMPRESSION: Moderate bibasilar infiltrates and small left pleural effusion. Consider infection or aspiration Upper lobe pulmonary vascular distention is likely related to bibasilar airspace disease. The possibility of mild underlying CHF is not excluded Interpreted and Authenticated by: Nicola Dias 08/12/21
[2021-08-12] MEDS: IPRATROPIUM/ALBUTEROL 3 ML AMPUL.NEB NEB SCH ×3 (15:17→23:18)
--- NOTE | 2021-08-12 19:07 | Internal Med Progress Note ---
SUBJECTIVE Subjective Patient information: Note initiated : 08/12/21 at 7:06 pm Service Date, if different from initiated Date: [] Patient: Maximo De La Cruz a 80 y/o M admitted on 08/11/21 for Cough, weakness. Chief Complaint: [] Interval history: Mr. De La Cruz is a 80 year old male with a history of hyperlipidemia, type 2 diabetes mellitus, atrial fibrillation on Xarelto, diastolic heart failure, right ventricle enlargement, chronic kidney disease stage IIIb, chronic normocytic anemia, COPD with chronic hypoxia of 2 to 3 L/min oxygen requirement, obstructive sleep apnea on CPAP, CVA, recent pneumonia in May 2021 who presented to the emergency department for fatigue and dyspnea that has been progressively worsening for about 3 days. Patient has also been experiencing bilateral lower extremity edema that is more than his baseline for at least 1 week. In the emergency department, the patient was afebrile, hemodynamically stable, requiring 4 L/min nasal cannula oxygen and in no respiratory distress. The patient appeared to be generally weak and tired. Physical exam is most notable for bilateral lower extremity pedal edema up to his mid calf. Routine blood work shows a normal WBC, stable hemoglobin of 10.8, creatinine of 2.1 which is slightly higher than the patient's baseline of 1.6-1.8, itojx-fb-zxfl glucose of 195, NT proBNP of 1019 and troponin mildly elevated at 0.04. EKG showed atrial fibrillation with a heart rate of 71, no acute ischemic changes. Hospital medicine was consulted for admission. 08/12 The patient became increasingly dyspneic today, lung sounds diminished bilaterally and not moving air well, chest xray was notable bibasilar infiltrates. ABG was normal. Started Ceftriaxone and Azithromycin as well as Solumedrol IV and bronchodilators for COPD exacerbation. Volume status looks good after a couple doses of lasix so discontinued IV lasix and resumed home oral lasix. Physical exam Head: Atraumatic, normal inspection. Eyes: normal appearance, no scleral icterus. Neck: full ROM Respiratory: On 4 L/min nasal cannula, bilateral faint wheezing, prolonged expiratory phase. Cardiovascular: Irregular normal rate, S1, S2. GI/Abdominal: soft, nontender, no guarding. Extremities: Bilateral lower extremity pedal edema up to mid calf, full range of motion, nontender. Neurological: CN II-XII intact, intact motor, intact sensation. Psychiatric: normal mood. Skin: warm, normal color Constitutional Vitals: Vital Signs Temp Pulse Resp BP Pulse Ox 98.2 F 86 32 H 154/70 93 08/12/21 16:01 08/12/21 18:01 08/12/21 18:01 08/12/21 18:01 08/12/21 18:01 Period Temp Pulse Resp BP Sys/Maki Pulse Ox Last 24 Hr 97.6 F-99.1 F 72-118 20-32 132-175/63-102 92-99 Intake and Output 08/12/21 08/12/21 08/12/21 05:59 13:59 21:59 Intake Total 200 265 240 Output Total 1150 1200 Balance -950 265 -960 Weight 86.591 kg Patient Weight 08/13/21 06:59 Weight 86.591 kg Intake & Output: Intake & Output 08/12/21 08/12/21 08/12/21 05:59 13:59 21:59 Intake Total 200 265 240 Output Total 1150 1200 Balance -950 265 -960 Weight 86.591 kg Intake: Nourishment/Supplement quantity 240 (ml) IV 265 Venofer 300 mg In Sodium 265 Chloride 0.9% 250 ml @ 100 mls/ hr IV DAILY [facility] Rx#:[id number] Oral 200 Output: Urine Catheter Amount 1150 1200 Other: Meal Dinner Percent of Meal Consumed 25% Feeding Ability Assist with Tray Set Up Nourishment/Supplement name glucerna Urine Appearance Clear Uretheral (Dan) Clear Urine Color Dark Yellow Uretheral (Dan) Pale OBJ DATA Labs CBC & Chem 7: 08/12/21 05:23 08/12/21 05:23 Labs: Abnormal Lab Results 08/12/21 08/12/21 08/11/21 05:23 05:23 16:57 RBC 3.97 L Hgb 11.7 L Hct 35.9 L POC Hct RDW 15.2 H Neut % (Auto) Lymph % (Auto) Lymph # (Auto) Lymphocytes % 10 L Absolute Neutrophils RBC Morphology Abnormal A Anisocytosis 1+ A ABG Methemoglobin VBG pH VBG pCO2 VBG pO2 VBG O2 Saturation VBG Base Excess Carboxyhemoglobin Total Hemoglobin Chloride 94 L Anion Gap 17.0 H POC BUN BUN 45 H Creatinine 1.8 H POC Creatinine Glucose 128 H POC Glucose Uric Acid 10.2 H Iron 17 L Transferrin % Sat 6 L Troponin T 0.04 H* C-Reactive Protein NT-Pro-B Natriuret Pep Globulin 3.8 H Procalcitonin 08/11/21 08/11/21 08/11/21 14:04 11:47 08:51 RBC Hgb Hct POC Hct RDW Neut % (Auto) Lymph % (Auto) Lymph # (Auto) Lymphocytes % Absolute Neutrophils RBC Morphology Anisocytosis ABG Methemoglobin 0.1 L VBG pH 7.52 H VBG pCO2 33.7 L VBG pO2 118.9 H VBG O2 Saturation 88.3 H VBG Base Excess 5 H Carboxyhemoglobin 10.0 H Total Hemoglobin 12.2 L Chloride Anion Gap POC BUN BUN Creatinine POC Creatinine Glucose POC Glucose Uric Acid Iron Transferrin % Sat Troponin T 0.04 H* C-Reactive Protein NT-Pro-B Natriuret Pep Globulin Procalcitonin 0.15 H 08/11/21 08/11/21 08/11/21 08:51 08:51 08:51 RBC Hgb Hct POC Hct 34 L RDW Neut % (Auto) Lymph % (Auto) Lymph # (Auto) Lymphocytes % Absolute Neutrophils RBC Morphology Anisocytosis ABG Methemoglobin VBG pH VBG pCO2 VBG pO2 VBG O2 Saturation VBG Base Excess Carboxyhemoglobin Total Hemoglobin Chloride Anion Gap POC BUN 43 H BUN Creatinine POC Creatinine 2.1 H Glucose POC Glucose 195 H Uric Acid Iron Transferrin % Sat Troponin T 0.04 H* C-Reactive Protein 4.60 H NT-Pro-B Natriuret Pep 1019.0 H Globulin Procalcitonin 08/11/21 08:51 RBC 3.68 L Hgb 10.8 L Hct 32.8 L POC Hct RDW 15.6 H Neut % (Auto) 86.3 H Lymph % (Auto) 6.5 L Lymph # (Auto) 0.71 L Lymphocytes % Absolute Neutrophils 9.35 H RBC Morphology Anisocytosis ABG Methemoglobin VBG pH VBG pCO2 VBG pO2 VBG O2 Saturation VBG Base Excess Carboxyhemoglobin Total Hemoglobin Chloride Anion Gap POC BUN BUN Creatinine POC Creatinine Glucose POC Glucose Uric Acid Iron Transferrin % Sat Troponin T C-Reactive Protein NT-Pro-B Natriuret Pep Globulin Procalcitonin Meds: Medications Acetaminophen (Acetaminophen 325 Mg Tablet) 650 mg PO Q6HP PRN; Protocol PRN Reason: Per Pain Protocol/Fever > 101 Albuterol Sulfate (Albuterol Sulfate 2.5 Mg/3 Ml Nebulizer) 2.5 mg NEB Q2HP PRN PRN Reason: Shortness Of Breath Albuterol/Ipratropium (Ipratropium/Albuterol 3 Ml Ampul.Neb) 3 ml NEB Q4H [facility] Last Admin: 08/12/21 15:17 Dose: 3 ml Documented by: Benzonatate (Benzonatate 100 Mg Capsule) 100 mg PO TIDP PRN PRN Reason: Cough Last Admin: 08/11/21 21:23 Dose: 100 mg Documented by: Dextrose (Dextrose 50% 50 Ml Vial) 0 ml IV UD PRN PRN Reason: Per Sliding Scale Diagnostic Test (Pha) (Accu-Chek 1 Each Strip) 1 each FS [facility] Last Admin: 08/12/21 17:02 Dose: 1 each Documented by: Docusate Sodium (Docusate Sodium 100 Mg Capsule) 100 mg PO BID [facility] Last Admin: 08/12/21 10:01 Dose: Not Given Documented by: Glucose (Dextrose 31 Gm Oral.Susp) 15 gm PO PRN PRN PRN Reason: Hypoglycemia Insulin Human Lispro (Insulin Lispro 1 Unit/0.01 Ml Unit) 0 unit SQ [facility]; Protocol Last Admin: 08/12/21 17:09 Dose: 2 unit Documented by: Methylprednisolone Sodium Succinate (Methylprednisolone Sod Succ 40 Mg/Ml Vial) 40 mg IV Q12 [facility] Ondansetron HCl (Ondansetron 4 Mg/2 Ml Vial) 4 mg IV Q6HP PRN PRN Reason: Nausea And Vomiting Senna (Sennosides 1 Tablet) 2 tab PO HS [facility] Last Admin: 08/11/21 20:35 Dose: Not Given Documented by: Sodium Chloride (0.9 % Sodium Chloride 10 Ml Syringe) 10 ml IV Q8 [facility] Last Admin: 08/12/21 16:40 Dose: 10 ml Documented by: ABG Interpretation ABG results: 08/11/21 11:47 ABG Methemoglobin 0.1 L VBG pH 7.52 H VBG pCO2 33.7 L VBG pO2 118.9 H VBG HCO3 27.1 VBG Total CO2 28.2 VBG O2 Saturation 88.3 H VBG Base Excess 5 H A/P Narrative A/P Narrative: Assessment: 80 year old male with a history of hyperlipidemia, type 2 diabetes mellitus, atrial fibrillation on Xarelto, diastolic heart failure, right ventricle enlargement, chronic kidney disease stage IIIb, chronic normocytic anemia, COPD with chronic hypoxia of 2 to 3 L/min oxygen requirement, obstructive sleep apnea on CPAP, recent pneumonia in May 2021 admitted for generalized weakness and dyspnea felt to be secondary pneumonia vs aspiration causing a COPD exacerbation. In addition the patient appears to be volume overloaded on exam and was diuresed with several doses of lasix before resuming home lasix. #Community acquired pneumonia vs aspiration #COPD exacerbation #Acute on chronic diastolic heart failure, likely resolved #Generalized weakness #Chronic kidney disease stage IIIb #Type 2 diabetes mellitus #Atrial fibrillation on Xarelto #Obstructive sleep apnea on CPAP #Chronic hypoxia 2 to 3 L/min #Hyperlipidemia #BPH Plan -Ceftriaxone and Azithromycin. -Solumedrol 40 mg IV BID. -Scheduled duoneb and prn albuterol nebs. -Oxygen supplementation. -Monitor renal function, electrolytes, urine output and volume status. -Lantus and correction Humalog SSI, holding home metformin and glipizide for now. -Resume home lasix 40 mg daily and discontinued lasix 40 mg IV BID. -Home gabapentin, pravastatin, Xarelto, Flomax, aripiprazole, fluoxetine. -Norvasc 5 mg daily, holding home lisinopril and HCTZ for now. -PT consult. -Speech therapy consult. -Low-sodium and consistent carbohydrate diet. 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 -Remove dan catheter when able. -DVT prophylaxis: On Xarelto -CODE STATUS: Full -Disposition: TBD Time Spent With Patient Time: Total time spent is greater than 50% in coordination of care (as documented) at patient's floor/unit and/or counseling patient: QUALITY VTE Deep Vein Thrombosis/Pulmonary Embolism Present on Admission: No
[2021-08-12] MEDS ORDERED: amLODIPine 5 MG TABLET PO SCH (19:20)
[2021-08-12] MEDS ORDERED: hydrOXYzine 25 MG TABLET PO PRN (19:32)
[2021-08-12] MEDS ORDERED: morphine 2 MG/ML VIAL IV PRN (19:34)
[2021-08-12] MEDS: guaiFENesin 600 MG TAB.SR.12H PO SCH (20:33)
[2021-08-12] MEDS: methylPREDNISolone SOD SUCC 40 MG/ML VIAL IV SCH ×2 (20:34→20:51)
[2021-08-12] MEDS: GABAPENTIN 300 MG CAPSULE PO SCH (20:34)
[2021-08-12] MEDS: cefTRIAXone 1 GM VIAL IV SCH (20:34)
[2021-08-12] MEDS: INSULIN GLARGINE, HUMAN 1 UNIT/0.01 ML SQ SCH (20:36)
[2021-08-12] MEDS: SENNOSIDES 1 TABLET PO SCH (20:38)
[2021-08-12] MEDS: AZITHROMYCIN 500 MG in DEXTROSE 5% IN WATER 250 ML IV SCH (20:50)
[2021-08-12] MEDS ORDERED: methylPREDNISolone SOD SUCC 40 MG/ML VIAL IV SCH (21:00)
[2021-08-13] MEDS: IPRATROPIUM/ALBUTEROL 3 ML AMPUL.NEB NEB SCH ×5 (03:36→19:24)
[2021-08-13 06:40] LABS: Hematocrit 34.3 % (40.1-51.0); Hemoglobin 10.7 g/dL (13.7-17.5); Mean Cell Volume 88.4 fL (80.0-100.0); Mean Corpuscular HGB Conc 31.2 g/dL (31.0-36.0); Mean Platelet Volume 9.6 fL (7.4-10.4); Platelet Count 221 K/mcL (140-440); RBC 3.88 M/mcL (4.63-6.08); Red Cell Distribution Width 15.3 % (11.5-14.5); WBC 8.1 K/mcL (4.5-11.0)
[2021-08-13 07:09] LABS: ALT/SGPT 10 U/L (<40); AST/SGOT 21 U/L (<40); Albumin 3.6 gm/dL (3.2-5.2); Albumin/Globulin Ratio 0.9 (1.0-2.3); Alkaline Phosphatase 65 U/L (39-117); Bilirubin,Direct < 0.2 mg/dL (0-0.3); Bilirubin,Total 0.4 mg/dL (0.1-1.0); Blood Urea Nitrogen 54 mg/dL (8-23); Calcium 9.4 mg/dL (8.6-10.4); Carbon Dioxide 28 mmol/L (22-30); Chloride 92 mmol/L (96-108); Globulin 3.8 gm/dL (2.2-3.7); Glomerular Filtration Rate 31; Glucose 241 mg/dL (70-105); Lactate Dehydrogenase 156 U/L (135-225); Phosphorous 3.9 mg/dL (2.5-4.5); Triglycerides 78 mg/dL (<150); Uric Acid 10.5 mg/dL (2.5-8.0)
[2021-08-13] MEDS: 0.9 % SODIUM CHLORIDE 10 ML SYRINGE IV SCH ×3 (07:38→21:44)
[2021-08-13] MEDS: INSULIN LISPRO 1 UNIT/0.01 ML UNIT SQ SCH ×4 (07:39→22:00)
[2021-08-13] MEDS: GABAPENTIN 300 MG CAPSULE PO SCH ×2 (08:07→22:00)
[2021-08-13] MEDS: ARIPIPRAZOLE 5 MG TABLET PO SCH (08:07)
[2021-08-13] MEDS: DOCUSATE SODIUM 100 MG CAPSULE PO SCH ×2 (08:07→22:00)
[2021-08-13] MEDS: TAMSULOSIN 0.4 MG CAPSULE PO SCH (08:07)
[2021-08-13] MEDS: ATORVASTATIN 10 MG TABLET PO SCH (08:07)
[2021-08-13] MEDS: guaiFENesin 600 MG TAB.SR.12H PO SCH ×2 (08:07→21:59)
[2021-08-13] MEDS: methylPREDNISolone SOD SUCC 40 MG/ML VIAL IV SCH ×2 (08:08→21:59)
[2021-08-13] MEDS: amLODIPine 5 MG TABLET PO SCH (08:08)
[2021-08-13] MEDS: FLUoxetine HCL 20 MG CAPSULE PO SCH (08:08)
[2021-08-13 08:23] LABS: Anisocytosis 1+ (None Seen); Band Neutrophils % 9 % (0-10); Lymphocytes % 7 % (15-49); Monocytes % (Manual) 7 % (1-12); Platelet Estimate NORMAL (Normal); RBC Morphology ABNORMAL (Normal); Segmented Neutrophils % 77 % (38-78)
[2021-08-13] MEDS ORDERED: FUROSEMIDE 40 MG TABLET PO SCH (09:00)
--- NOTE | 2021-08-13 09:25 | EKG ---
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
[2021-08-13] MEDS: cefTRIAXone 1 GM VIAL IV SCH (09:53)
--- NOTE | 2021-08-13 11:20 | Internal Med Progress Note ---
SUBJECTIVE Subjective Patient information: Note initiated : 08/13/21 at 11:18 am Service Date, if different from initiated Date: [] Patient: Maximo De La Cruz a 80 y/o M admitted on 08/11/21 for Cough, weakness. Chief Complaint: [] Interval history: Mr. De La Cruz is a 80 year old male with a history of hyperlipidemia, type 2 diabetes mellitus, atrial fibrillation on Xarelto, diastolic heart failure, right ventricle enlargement, chronic kidney disease stage IIIb, chronic normocytic anemia, COPD with chronic hypoxia of 2 to 3 L/min oxygen requirement, obstructive sleep apnea on CPAP, CVA, recent pneumonia in May 2021 who presented to the emergency department for fatigue and dyspnea that has been progressively worsening for about 3 days. Patient has also been experiencing bilateral lower extremity edema that is more than his baseline for at least 1 week. In the emergency department, the patient was afebrile, hemodynamically stable, requiring 4 L/min nasal cannula oxygen and in no respiratory distress. The patient appeared to be generally weak and tired. Physical exam is most notable for bilateral lower extremity pedal edema up to his mid calf. Routine blood work shows a normal WBC, stable hemoglobin of 10.8, creatinine of 2.1 whic h is slightly higher than the patient's baseline of 1.6-1.8, [id number] glucose of 195, NT proBNP of 1019 and troponin mildly elevated at 0.04. EKG showed atrial fibrillation with a heart rate of 71, no acute ischemic changes. Hospital medicine was consulted for admission. 08/12 The patient became increasingly dyspneic today, lung sounds diminished bilaterally and not moving air well, chest xray was notable bibasilar infiltrates. ABG was normal. Started Ceftriaxone and Azithromycin as well as Solumedrol IV and bronchodilators for COPD exacerbation. Volume status looks good after a couple doses of lasix so discontinued IV lasix and resumed home oral lasix. 08/13 Respiratory status much better than yesterday, transferred back to [facility]. Speech consult pending. Physical exam Head: Atraumatic, normal inspection. Eyes: normal appearance, no scleral icterus. Neck: full ROM Respiratory: On 4 L/min nasal cannula, bilateral faint wheezing, prolonged expiratory phase. Cardiovascular: Irregular normal rate, S1, S2. GI/Abdominal: soft, nontender, no guarding. Extremities: Full range of motion, edema much improved since admission. Neurological: CN II-XII intact, intact motor, intact sensation. Psychiatric: normal mood. Skin: warm, normal color Constitutional Vitals: Vital Signs Temp Pulse Resp BP Pulse Ox 98.2 F 87 23 H 122/51 94 08/13/21 09:13 08/13/21 08:00 08/13/21 09:20 08/13/21 10:01 08/13/21 10:01 Period Temp Pulse Resp BP Sys/Maki Pulse Ox Last 24 Hr 98.0 F-99.6 F 72-118 14-36 91-174/51-82 90-99 Intake and Output 08/12/21 08/13/21 08/13/21 20:59 05:59 13:59 Intake Total 360 Output Total Balance 360 Weight Intake & Output: Intake & Output 08/12/21 08/13/21 08/13/21 20:59 05:59 13:59 Intake Total 360 Output Total Balance 360 Weight Intake: Nourishment/Supplement quantity (ml) IV Zithromax 500 mg In Dextrose 5% in Water 250 ml @ 250 mls/hr IV DAILY [facility] Rx#:[id number] Oral 360 Output: Urine Catheter Amount Other: Meal Percent of Meal Consumed Feeding Ability Nourishment/Supplement name Urine Appearance Uretheral (Dan) Clear Urine Color Uretheral (Dan) Dark Yellow Urine Odor OBJ DATA Labs CBC & Chem 7: 08/13/21 05:15 08/13/21 05:15 Labs: Abnormal Lab Results 08/13/21 08/13/21 08/12/21 05:15 05:15 05:23 RBC 3.88 L Hgb 10.7 L Hct 34.3 L POC Hct RDW 15.3 H Neut % (Auto) Lymph % (Auto) Lymph # (Auto) Lymphocytes % 7 L Absolute Neutrophils RBC Morphology Abnormal A Anisocytosis 1+ A ABG Methemoglobin VBG pH VBG pCO2 VBG pO2 VBG O2 Saturation VBG Base Excess Carboxyhemoglobin Total Hemoglobin Chloride 92 L 94 L Anion Gap 17.0 H POC BUN BUN 54 H 45 H Creatinine 2.0 H 1.8 H POC Creatinine Glucose 241 H 128 H POC Glucose Uric Acid 10.5 H 10.2 H Iron 17 L Transferrin % Sat 6 L Troponin T C-Reactive Protein NT-Pro-B Natriuret Pep Globulin 3.8 H 3.8 H Albumin/Globulin Ratio 0.9 L Procalcitonin 08/12/21 08/11/21 08/11/21 05:23 16:57 14:04 RBC 3.97 L Hgb 11.7 L Hct 35.9 L POC Hct RDW 15.2 H Neut % (Auto) Lymph % (Auto) Lymph # (Auto) Lymphocytes % 10 L Absolute Neutrophils RBC Morphology Abnormal A Anisocytosis 1+ A ABG Methemoglobin VBG pH VBG pCO2 VBG pO2 VBG O2 Saturation VBG Base Excess Carboxyhemoglobin Total Hemoglobin Chloride Anion Gap POC BUN BUN Creatinine POC Creatinine Glucose POC Glucose Uric Acid Iron Transferrin % Sat Troponin T 0.04 H* 0.04 H* C-Reactive Protein NT-Pro-B Natriuret Pep Globulin Albumin/Globulin Ratio Procalcitonin 08/11/21 08/11/21 08/11/21 11:47 08:51 08:51 RBC Hgb Hct POC Hct RDW Neut % (Auto) Lymph % (Auto) Lymph # (Auto) Lymphocytes % Absolute Neutrophils RBC Morphology Anisocytosis ABG Methemoglobin 0.1 L VBG pH 7.52 H VBG pCO2 33.7 L VBG pO2 118.9 H VBG O2 Saturation 88.3 H VBG Base Excess 5 H Carboxyhemoglobin 10.0 H Total Hemoglobin 12.2 L Chloride Anion Gap POC BUN BUN Creatinine POC Creatinine Glucose POC Glucose Uric Acid Iron Transferrin % Sat Troponin T C-Reactive Protein 4.60 H NT-Pro-B Natriuret Pep Globulin Albumin/Globulin Ratio Procalcitonin 0.15 H 08/11/21 08/11/21 08/11/21 08:51 08:51 08:51 RBC 3.68 L Hgb 10.8 L Hct 32.8 L POC Hct 34 L RDW 15.6 H Neut % (Auto) 86.3 H Lymph % (Auto) 6.5 L Lymph # (Auto) 0.71 L Lymphocytes % Absolute Neutrophils 9.35 H RBC Morphology Anisocytosis ABG Methemoglobin VBG pH VBG pCO2 VBG pO2 VBG O2 Saturation VBG Base Excess Carboxyhemoglobin Total Hemoglobin Chloride Anion Gap POC BUN 43 H BUN Creatinine POC Creatinine 2.1 H Glucose POC Glucose 195 H Uric Acid Iron Transferrin % Sat Troponin T 0.04 H* C-Reactive Protein NT-Pro-B Natriuret Pep 1019.0 H Globulin Albumin/Globulin Ratio Procalcitonin Meds: Medications Acetaminophen (Acetaminophen 325 Mg Tablet) 650 mg PO Q6HP PRN; Protocol PRN Reason: Per Pain Protocol/Fever > 101 Last Admin: 08/12/21 19:06 Dose: 650 mg Documented by: Albuterol Sulfate (Albuterol Sulfate 2.5 Mg/3 Ml Nebulizer) 2.5 mg NEB Q2HP PRN PRN Reason: Shortness Of Breath Albuterol/Ipratropium (Ipratropium/Albuterol 3 Ml Ampul.Neb) 3 ml NEB Q4H [facility] Last Admin: 08/13/21 06:55 Dose: 3 ml Documented by: Amlodipine Besylate (Amlodipine 5 Mg Tablet) 2.5 mg PO DAILY [facility] [place] Last Admin: 08/13/21 08:08 Dose: 2.5 mg Documented by: Atorvastatin Calcium (Atorvastatin 10 Mg Tablet) 10 mg PO QDAY [facility] [place] Last Admin: 08/13/21 08:07 Dose: 10 mg Documented by: Benzonatate (Benzonatate 100 Mg Capsule) 100 mg PO TIDP PRN PRN Reason: Cough Last Admin: 08/11/21 21:23 Dose: 100 mg Documented by: Ceftriaxone Sodium (Ceftriaxone 1 Gm Vial) 1 gm IV Q24H [facility]; Protocol Stop: 08/17/21 19:14 Last Admin: 08/13/21 09:53 Dose: 1 gm Documented by: Dextrose (Dextrose 50% 50 Ml Vial) 0 ml IV UD PRN PRN Reason: Per Sliding Scale Diagnostic Test (Pha) (Accu-Chek 1 Each Strip) 1 each FS ACHS [facility] [place] Last Admin: 08/13/21 07:38 Dose: 1 each Documented by: Docusate Sodium (Docusate Sodium 100 Mg Capsule) 100 mg PO BID [facility] Last Admin: 08/13/21 08:07 Dose: 100 mg Documented by: Fluoxetine HCl (Fluoxetine Hcl 20 Mg Capsule) 20 mg PO QDAY [facility] Last Admin: 08/13/21 08:08 Dose: 20 mg Documented by: Furosemide (Furosemide 40 Mg Tablet) 40 mg PO QAM [facility] Last Admin: 08/13/21 08:07 Dose: 40 mg Documented by: Gabapentin (Gabapentin 300 Mg Capsule) 300 mg PO BID [facility] Last Admin: 08/13/21 08:07 Dose: 300 mg Documented by: Glucose (Dextrose 31 Gm Oral.Susp) 15 gm PO PRN PRN PRN Reason: Hypoglycemia Guaifenesin (Guaifenesin 600 Mg Tab.Sr.12h) 600 mg PO BID [facility] Last Admin: 08/13/21 08:07 Dose: 600 mg Documented by: Hydroxyzine HCl (Hydroxyzine 25 Mg Tablet) 25 mg PO TIDP PRN PRN Reason: anxiety Azithromycin 500 mg/ Dextrose 250 mls @ 250 mls/hr IV DAILY [facility]; Protocol Stop: 08/14/21 09:59 Last Infusion: 08/12/21 22:08 Dose: Infused Documented by: Insulin Glargine (Insulin Glargine, Human 1 Unit/0.01 Ml) 10 unit SQ [facility] Last Admin: 08/12/21 20:36 Dose: 10 units Documented by: Insulin Human Lispro (Insulin Lispro 1 Unit/0.01 Ml Unit) 0 unit SQ [facility]; Protocol Last Admin: 08/13/21 07:39 Dose: 8 units Documented by: Methylprednisolone Sodium Succinate (Methylprednisolone Sod Succ 40 Mg/Ml Vial) 40 mg IV Q12 [facility] Last Admin: 08/13/21 08:08 Dose: 40 mg Documented by: Morphine Sulfate (Morphine 2 Mg/Ml Vial) 2 mg IV Q4HP PRN; Protocol PRN Reason: air hunger Ondansetron HCl (Ondansetron 4 Mg/2 Ml Vial) 4 mg IV Q6HP PRN PRN Reason: Nausea And Vomiting Senna (Sennosides 1 Tablet) 2 tab PO HS [facility] Last Admin: 08/12/21 20:38 Dose: 2 tab Documented by: Sodium Chloride (0.9 % Sodium Chloride 10 Ml Syringe) 10 ml IV Q8 [facility] Last Admin: 08/13/21 07:38 Dose: 10 ml Documented by: Tamsulosin HCl (Tamsulosin 0.4 Mg Capsule) 0.4 mg PO QDAY [facility] Last Admin: 08/13/21 08:07 Dose: 0.4 mg Documented by: ABG Interpretation ABG results: 08/11/21 11:47 ABG Methemoglobin 0.1 L VBG pH 7.52 H VBG pCO2 33.7 L VBG pO2 118.9 H VBG HCO3 27.1 VBG Total CO2 28.2 VBG O2 Saturation 88.3 H VBG Base Excess 5 H A/P Narrative A/P Narrative: Assessment: 80 year old male with a history of hyperlipidemia, type 2 diabetes mellitus, atrial fibrillation on Xarelto, diastolic heart failure, right ventricle enlargement, chronic kidney disease stage IIIb, chronic normocytic anemia, COPD with chronic hypoxia of 2 to 3 L/min oxygen requirement, obstructive sleep apnea on CPAP, recent pneumonia in May 2021 admitted for generalized weakness and dyspnea felt to be secondary pneumonia vs aspiration causing a COPD exacerbation. In addition the patient appears to be volume ove rloaded on exam and was diuresed with several doses of lasix before resuming home lasix. #Community acquired pneumonia vs aspiration #COPD exacerbation #Acute on chronic diastolic heart failure, likely resolved #Generalized weakness #Chronic kidney disease stage IIIb #Type 2 diabetes mellitus #Atrial fibrillation on Xarelto #Obstructive sleep apnea on CPAP #Chronic hypoxia 2 to 3 L/min #Hyperlipidemia #BPH Plan -Ceftriaxone and Azithromycin. -Solumedrol 40 mg IV BID. -Scheduled duoneb and prn albuterol nebs. -Oxygen supplementation. -Monitor renal function, electrolytes, urine output and volume status. -Lantus and correction Humalog SSI, holding home metformin and glipizide for n ow. -Home Lasix, gabapentin, pravastatin, Xarelto, Flomax, aripiprazole, fluoxetine. -Norvasc 5 mg daily, holding home lisinopril and HCTZ for now. -PT consult. -Speech therapy consult. -Low-sodium and consistent carbohydrate diet. -secured entrance monitor. -Remove dan catheter. -DVT prophylaxis: On Xarelto -CODE STATUS: Full -Disposition: TBD Time Spent With Patient Time: Total time spent is greater than 50% in coordination of care (as documented) at patient's floor/unit and/or counseling patient: QUALITY VTE Deep Vein Thrombosis/Pulmonary Embolism Present on Admission: No
[2021-08-13] MEDS: AZITHROMYCIN 500 MG in DEXTROSE 5% IN WATER 250 ML IV SCH (13:47)
--- NOTE | 2021-08-13 15:25 | Internal Med Progress Note ---
SUBJECTIVE Subjective Patient information: Note initiated : 08/13/21 at 3:16 pm Service Date, if different from initiated Date: [] Patient: Maximo De La Cruz a 80 y/o M admitted on 08/11/21 for Cough, weakness. Chief Complaint: [] Interval history: Mr. De La Cruz is a 80 year old male with a history of hyperlipidemia, type 2 diabetes mellitus, atrial fibrillation on Xarelto, diastolic heart failure, right ventricle enlargement, chronic kidney disease stage IIIb, chronic normocytic anemia, COPD with chronic hypoxia of 2 to 3 L/min oxygen requirement, obstructive sleep apnea on CPAP, CVA, recent pneumonia in May 2021 who presented to the emergency department for fatigue and dyspnea that has been progressively worsening for about 3 days. Patient has also been experiencing bilateral lower extremity edema that is more than his baseline for at least 1 week. In the emergency department, the patient was afebrile, hemodynamically stable, requiring 4 L/min nasal cannula oxygen and in no respiratory distress. The patient appeared to be generally weak and tired. Physical exam is most notable for bilateral lower extremity pedal edema up to his mid calf. Routine blood work shows a normal WBC, stable hemoglobin of 10.8, creatinine of 2.1 which is slightly higher than the patient's baseline of 1.6-1.8, ogqpn-[id number]-fuwy glucose of 195, NT proBNP of 1019 and troponin mildly elevated at 0.04. EKG showed atrial fibrillation with a heart rate of 71, no acute ischemic changes. Hospital medicine was consulted for admission. 08/12 The patient became increasingly dyspneic today, lung sounds diminished bilaterally and not moving air well, chest xray was notable bibasilar infiltrates. ABG was normal. Started Ceftriaxone and Azithromycin as well as Solumedrol IV and bronchodilators for COPD exacerbation. Volume status looks good after a couple doses of lasix so discontinued IV lasix and resumed home oral lasix. 08/13 Respiratory status much better than yesterday, transferred back to [facility]. Speech consult pending. 08/14 Constitutional Vitals: Vital Signs Temp Pulse Resp BP Pulse Ox 98.8 F 103 H 20 115/58 95 08/13/21 15:13 08/13/21 15:13 08/13/21 15:13 08/13/21 15:13 08/13/21 15:13 Period Temp Pulse Resp BP Sys/Maki Pulse Ox Last 24 Hr 98.0 F-99.6 F 81-103 14-36 91-154/51-82 90-99 Intake and Output 08/13/21 08/13/21 08/13/21 05:59 13:59 21:59 Intake Total 720 Output Total Balance 720 Weight Intake & Output: Intake & Output 08/13/21 08/13/21 08/13/21 05:59 13:59 21:59 Intake Total 720 Output Total Balance 720 Weight Intake: IV Zithromax 500 mg In Dextrose 5% in Water 250 ml @ 250 mls/hr IV DAILY [facility] Rx#:[id number] Oral 720 Output: Urine Catheter Amount Other: Meal Lunch Percent of Meal Consumed 100% Feeding Ability Independent Urine Appearance Uretheral (Dan) Clear Urine Color Uretheral (Dan) Dark Yellow Urine Odor Exam: General: Alert, Awake, No acute Distress Eyes/N/T: EOMI, Head/Neck: neck supple, CV: irreg irreg, No murmurs, Pulm: , Mild b/l wheezing, prolonged expiratory phase Abd: soft, nontender, +BS x4 Ext: no clubbing/cyanosis/edema Neuro: Alert, no focal deficits, moves all extremities, Skin: warm/dry OBJ DATA Labs CBC & Chem 7: 08/13/21 05:15 08/13/21 05:15 Labs: Abnormal Lab Results 08/13/21 08/13/21 08/12/21 05:15 05:15 05:23 RBC 3.88 L Hgb 10.7 L Hct 34.3 L POC Hct RDW 15.3 H Neut % (Auto) Lymph % (Auto) Lymph # (Auto) Lymphocytes % 7 L Absolute Neutrophils RBC Morphology Abnormal A Anisocytosis 1+ A ABG Methemoglobin VBG pH VBG pCO2 VBG pO2 VBG O2 Saturation VBG Base Excess Carboxyhemoglobin Total Hemoglobin Chloride 92 L 94 L Anion Gap 17.0 H POC BUN BUN 54 H 45 H Creatinine 2.0 H 1.8 H POC Creatinine Glucose 241 H 128 H POC Glucose Uric Acid 10.5 H 10.2 H Iron 17 L Transferrin % Sat 6 L Troponin T C-Reactive Protein NT-Pro-B Natriuret Pep Globulin 3.8 H 3.8 H Albumin/Globulin Ratio 0.9 L Procalcitonin 08/12/21 08/11/21 08/11/21 05:23 16:57 14:04 RBC 3.97 L Hgb 11.7 L Hct 35.9 L POC Hct RDW 15.2 H Neut % (Auto) Lymph % (Auto) Lymph # (Auto) Lymphocytes % 10 L Absolute Neutrophils RBC Morphology Abnormal A Anisocytosis 1+ A ABG Methemoglobin VBG pH VBG pCO2 VBG pO2 VBG O2 Saturation VBG Base Excess Carboxyhemoglobin Total Hemoglobin Chloride Anion Gap POC BUN BUN Creatinine POC Creatinine Glucose POC Glucose Uric Acid Iron Transferrin % Sat Troponin T 0.04 H* 0.04 H* C-Reactive Protein NT-Pro-B Natriuret Pep Globulin Albumin/Globulin Ratio Procalcitonin 08/11/21 08/11/21 08/11/21 11:47 08:51 08:51 RBC Hgb Hct POC Hct RDW Neut % (Auto) Lymph % (Auto) Lymph # (Auto) Lymphocytes % Absolute Neutrophils RBC Morphology Anisocytosis ABG Methemoglobin 0.1 L VBG pH 7.52 H VBG pCO2 33.7 L VBG pO2 118.9 H VBG O2 Saturation 88.3 H VBG Base Excess 5 H Carboxyhemoglobin 10.0 H Total Hemoglobin 12.2 L Chloride Anion Gap POC BUN BUN Creatinine POC Creatinine Glucose POC Glucose Uric Acid Iron Transferrin % Sat Troponin T C-Reactive Protein 4.60 H NT-Pro-B Natriuret Pep Globulin Albumin/Globulin Ratio Procalcitonin 0.15 H 08/11/21 08/11/21 08/11/21 08:51 08:51 08:51 RBC 3.68 L Hgb 10.8 L Hct 32.8 L POC Hct 34 L RDW 15.6 H Neut % (Auto) 86.3 H Lymph % (Auto) 6.5 L Lymph # (Auto) 0.71 L Lymphocytes % Absolute Neutrophils 9.35 H RBC Morphology Anisocytosis ABG Methemoglobin VBG pH VBG pCO2 VBG pO2 VBG O2 Saturation VBG Base Excess Carboxyhemoglobin Total Hemoglobin Chloride Anion Gap POC BUN 43 H BUN Creatinine POC Creatinine 2.1 H Glucose POC Glucose 195 H Uric Acid Iron Transferrin % Sat Troponin T 0.04 H* C-Reactive Protein NT-Pro-B Natriuret Pep 1019.0 H Globulin Albumin/Globulin Ratio Procalcitonin Meds: Medications Acetaminophen (Acetaminophen 325 Mg Tablet) 650 mg PO Q6HP PRN; Protocol PRN Reason: Per Pain Protocol/Fever > 101 Last Admin: 08/12/21 19:06 Dose: 650 mg Documented by: Albuterol Sulfate (Albuterol Sulfate 2.5 Mg/3 Ml Nebulizer) 2.5 mg NEB Q2HP PRN PRN Reason: Shortness Of Breath Albuterol/Ipratropium (Ipratropium/Albuterol 3 Ml Ampul.Neb) 3 ml NEB Q4H [facility] Last Admin: 08/13/21 11:39 Dose: 3 ml Documented by: Amlodipine Besylate (Amlodipine 5 Mg Tablet) 2.5 mg PO DAILY [facility] Last Admin: 08/13/21 08:08 Dose: 2.5 mg Documented by: Atorvastatin Calcium (Atorvastatin 10 Mg Tablet) 10 mg PO QDAY [facility] Last Admin: 08/13/21 08:07 Dose: 10 mg Documented by: Benzonatate (Benzonatate 100 Mg Capsule) 100 mg PO TIDP PRN PRN Reason: Cough Last Admin: 08/11/21 21:23 Dose: 100 mg Documented by: Ceftriaxone Sodium (Ceftriaxone 1 Gm Vial) 1 gm IV Q24H [facility]; Protocol Stop: 08/17/21 19:14 Last Admin: 08/13/21 09:53 Dose: 1 gm Documented by: Dextrose (Dextrose 50% 50 Ml Vial) 0 ml IV UD PRN PRN Reason: Per Sliding Scale Diagnostic Test (Pha) (Accu-Chek 1 Each Strip) 1 each FS ACHS [facility] Last Admin: 08/13/21 11:19 Dose: 1 each Documented by: Docusate Sodium (Docusate Sodium 100 Mg Capsule) 100 mg PO BID [facility] Last Admin: 08/13/21 08:07 Dose: 100 mg Documented by: Fluoxetine HCl (Fluoxetine Hcl 20 Mg Capsule) 20 mg PO QDAY [facility] Last Admin: 08/13/21 08:08 Dose: 20 mg Documented by: Furosemide (Furosemide 40 Mg Tablet) 40 mg PO QAM [facility] Last Admin: 08/13/21 08:07 Dose: 40 mg Documented by: Gabapentin (Gabapentin 300 Mg Capsule) 300 mg PO BID [facility] Last Admin: 08/13/21 08:07 Dose: 300 mg Documented by: Glucose (Dextrose 31 Gm Oral.Susp) 15 gm PO PRN PRN PRN Reason: Hypoglycemia Guaifenesin (Guaifenesin 600 Mg Tab.Sr.12h) 600 mg PO BID [facility] Last Admin: 08/13/21 08:07 Dose: 600 mg Documented by: Hydroxyzine HCl (Hydroxyzine 25 Mg Tablet) 25 mg PO TIDP PRN PRN Reason: anxiety Azithromycin 500 mg/ Dextrose 250 mls @ 250 mls/hr IV DAILY [facility]; Protocol Stop: 08/14/21 09:59 Last Admin: 08/13/21 13:47 Dose: 250 mls/hr Documented by: Insulin Glargine (Insulin Glargine, Human 1 Unit/0.01 Ml) 10 unit SQ [facility] Last Admin: 08/12/21 20:36 Dose: 10 units Documented by: Insulin Human Lispro (Insulin Lispro 1 Unit/0.01 Ml Unit) [address] [facility]; Protocol Last Admin: 08/13/21 11:20 Dose: 12 units Documented by: Methylprednisolone Sodium Succinate (Methylprednisolone Sod Succ 40 Mg/Ml Vial) 40 mg IV Q12 [facility] Last Admin: 08/13/21 08:08 Dose: 40 mg Documented by: Morphine Sulfate (Morphine 2 Mg/Ml Vial) 2 mg IV Q4HP PRN; Protocol PRN Reason: air hunger Ondansetron HCl (Ondansetron 4 Mg/2 Ml Vial) 4 mg IV Q6HP PRN PRN Reason: Nausea And Vomiting Senna (Sennosides 1 Tablet) 2 tab PO HS [facility] Last Admin: 08/12/21 20:38 Dose: 2 tab Documented by: Sodium Chloride (0.9 % Sodium Chloride 10 Ml Syringe) 10 ml IV Q8 [facility] Last Admin: 08/13/21 13:48 Dose: 10 ml Documented by: Tamsulosin HCl (Tamsulosin 0.4 Mg Capsule) 0.4 mg PO QDAY [facility] Last Admin: 08/13/21 08:07 Dose: 0.4 mg Documented by: ABG Interpretation ABG results: 08/11/21 11:47 ABG Methemoglobin 0.1 L VBG pH 7.52 H VBG pCO2 33.7 L VBG pO2 118.9 H VBG HCO3 27.1 VBG Total CO2 28.2 VBG O2 Saturation 88.3 H VBG Base Excess 5 H A/P Narrative A/P Narrative: A: #CAP likely Aspiration PNA: #COPD exacerbation w/chronic hypoxia (2-3L@home): #Acute on chronic diastolic CHF: likely resolved #Generalized weakness: #CKD IIIb: #Anemia, chronic: #DM Type 2: #Atrial fibrillation: on Xarelto #ALEJANDRA on CPAP: #Hyperlipidemia / BPH: Plan: -Ceftriaxone and Azithromycin -Solumedrol (wean) 40 mg IV BID -Scheduled duoneb and prn albuterol nebs. -Oxygen supplementation -Monitor renal function, electrolytes, urine output and volume status. -Lantus and SSI, holding home metformin and glipizide for now -hold home lasix for now -cont home gabapentin/pravastatin/Xarelto/Flomax, aripiprazole/fluoxetine. 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
[2021-08-13] MEDS: RIVAROXABAN 15 MG TABLET PO SCH (17:02)
[2021-08-13] MEDS: SENNOSIDES 1 TABLET PO SCH (21:59)
[2021-08-13] MEDS: INSULIN GLARGINE, HUMAN 1 UNIT/0.01 ML SQ SCH (22:01)
[2021-08-14] MEDS: IPRATROPIUM/ALBUTEROL 3 ML AMPUL.NEB NEB SCH ×4 (00:43→19:24)
[2021-08-14] MEDS: 0.9 % SODIUM CHLORIDE 10 ML SYRINGE IV SCH ×3 (05:40→21:03)
[2021-08-14 06:40] LABS: ALT/SGPT 11 U/L (<40); AST/SGOT 17 U/L (<40); Albumin 3.2 gm/dL (3.2-5.2); Albumin/Globulin Ratio 0.9 (1.0-2.3); Alkaline Phosphatase 59 U/L (39-117); Bilirubin,Direct < 0.2 mg/dL (0-0.3); Bilirubin,Total 0.2 mg/dL (0.1-1.0); Blood Urea Nitrogen 73 mg/dL (8-23); Calcium 9.2 mg/dL (8.6-10.4); Carbon Dioxide 26 mmol/L (22-30); Chloride 86 mmol/L (96-108); Globulin 3.6 gm/dL (2.2-3.7); Glomerular Filtration Rate 31; Glucose 289 mg/dL (70-105); Lactate Dehydrogenase 151 U/L (135-225); Phosphorous 3.8 mg/dL (2.5-4.5); Triglycerides 82 mg/dL (<150); Uric Acid 10.1 mg/dL (2.5-8.0)
[2021-08-14] MEDS: INSULIN LISPRO 1 UNIT/0.01 ML UNIT SQ SCH ×5 (07:28→22:56)
[2021-08-14] MEDS ORDERED: INSULIN GLARGINE, HUMAN 1 UNIT/0.01 ML SQ ONE (08:08)
--- NOTE | 2021-08-14 08:08 | Internal Med Progress Note ---
SUBJECTIVE Subjective Patient information: Note initiated : 08/14/21 at 8:07 am Service Date, if different from initiated Date: [] Patient: Maximo De La Cruz a 80 y/o M admitted on 08/11/21 for Cough, weakness. Chief Complaint: [] Interval history: Mr. De La Cruz is a 80 year old male with a history of hyperlipidemia, type 2 diabetes mellitus, atrial fibrillation on Xarelto, diastolic heart failure, right ventricle enlargement, chronic kidney disease stage IIIb, chronic normocytic anemia, COPD with chronic hypoxia of 2 to 3 L/min oxygen requirement, obstructive sleep apnea on CPAP, CVA, recent pneumonia in May 2021 who presented to the emergency department for fatigue and dyspnea that has been progressively worsening for about 3 days. Patient has also been experiencing bilateral lower extremity edema that is more than his baseline for at least 1 week. In the emergency department, the patient was afebrile, hemodynamically stable, requiring 4 L/min nasal cannula oxygen and in no respiratory distress. The patient appeared to be generally weak and tired. Physical exam is most notable for bilateral lower extremity pedal edema up to his mid calf. Routine blood work shows a normal WBC, stable hemoglobin of 10.8, creatinine of 2.1 which is slightly higher than the patient's baseline of 1.6-1.8, uhbsg-rw-[id number] glucose of 195, NT proBNP of 1019 and troponin mildly elevated at 0.04. EKG showed atrial fibrillation with a heart rate of 71, no acute ischemic changes. Hospital medicine was consulted for admission. 08/12 The patient became increasingly dyspneic today, lung sounds diminished bilaterally and not moving air well, chest xray was notable bibasilar infiltrates. ABG was normal. Started Ceftriaxone and Azithromycin as well as Solumedrol IV and bronchodilators for COPD exacerbation. Volume status looks good after a couple doses of lasix so discontinued IV lasix and resumed home oral lasix. 08/13 Respiratory status much better than yesterday, transferred back to [facility]. Speech consult pending. 08/14 Patient states his cough and shortness of breath no more than usual. Hoping to go home soon. Awaiting speech therapy evaluation pending. Sodium low this morning. Renal function stable. Review of Systems: denies headache/fever/chills/nausea/vomiting/chest or abdominal pain/diarrhea. Otherwise see above. Constitutional Vitals: Vital Signs Temp Pulse Resp BP Pulse Ox 97.8 F 74 22 134/66 92 08/14/21 04:00 08/14/21 07:00 08/14/21 07:00 08/14/21 04:00 08/14/21 07:00 Period Temp Pulse Resp BP Sys/Maki Pulse Ox Last 24 Hr 97.3 F-99 F 64-103 18-25 109-144/51-74 92-96 Intake and Output 08/13/21 08/14/21 08/14/21 21:59 05:59 13:59 Intake Total 250 480 Output Total 400 354 1 Balance -150 126 -1 Weight 87.118 kg Intake & Output: Intake & Output 08/13/21 08/14/21 08/14/21 21:59 05:59 13:59 Intake Total 250 480 Output Total 400 354 1 Balance -150 126 -1 Weight 87.118 kg Intake: IV 250 Zithromax 500 mg In Dextrose 5% 250 in Water 250 ml @ 250 mls/hr IV DAILY [facility] Rx#:[id number] Oral 0 480 Output: Urine Catheter Amount 400 Void Amount 350 # of times incontinent of urine 4 1 Other: Meal Dinner Percent of Meal Consumed 100% Feeding Ability Independent Urine Appearance Clear Clear Uretheral (Dan) Clear Urine Color Dark Araceli Bright Yellow Uretheral (Dan) Dark Araceli Urine Odor Normal # Voids 3 Exam: General: Alert, Awake, No acute Distress Eyes/N/T: EOMI, Head/Neck: neck supple, CV: irreg irreg, No murmurs, Pulm: Mild rhonchi b/l, no wheezing today, prolonged expiratory phase Abd: soft, nontender, +BS x4 Ext: no clubbing/cyanosis, mild b/l LE edema Neuro: Alert, no focal deficits, moves all extremities, Skin: warm/dry OBJ DATA Labs CBC & Chem 7: 08/13/21 05:15 08/14/21 05:06 Labs: Abnormal Lab Results 08/14/21 08/13/21 08/13/21 05:06 05:15 05:15 RBC 3.88 L Hgb 10.7 L Hct 34.3 L POC Hct RDW 15.3 H Neut % (Auto) Lymph % (Auto) Lymph # (Auto) Lymphocytes % 7 L Absolute Neutrophils RBC Morphology Abnormal A Anisocytosis 1+ A ABG Methemoglobin VBG pH VBG pCO2 VBG pO2 VBG O2 Saturation VBG Base Excess Carboxyhemoglobin Total Hemoglobin Sodium 126 L Chloride 86 L 92 L Anion Gap POC BUN BUN 73 H 54 H Creatinine 2.0 H 2.0 H POC Creatinine Glucose 289 H 241 H POC Glucose Uric Acid 10.1 H 10.5 H Iron Transferrin % Sat Troponin T C-Reactive Protein NT-Pro-B Natriuret Pep Globulin 3.8 H Albumin/Globulin Ratio 0.9 L 0.9 L Procalcitonin 08/12/21 08/12/21 08/11/21 05:23 05:23 16:57 RBC 3.97 L Hgb 11.7 L Hct 35.9 L POC Hct RDW 15.2 H Neut % (Auto) Lymph % (Auto) Lymph # (Auto) Lymphocytes % 10 L Absolute Neutrophils RBC Morphology Abnormal A Anisocytosis 1+ A ABG Methemoglobin VBG pH VBG pCO2 VBG pO2 VBG O2 Saturation VBG Base Excess Carboxyhemoglobin Total Hemoglobin Sodium Chloride 94 L Anion Gap 17.0 H POC BUN BUN 45 H Creatinine 1.8 H POC Creatinine Glucose 128 H POC Glucose Uric Acid 10.2 H Iron 17 L Transferrin % Sat 6 L Troponin T 0.04 H* C-Reactive Protein NT-Pro-B Natriuret Pep Globulin 3.8 H Albumin/Globulin Ratio Procalcitonin 08/11/21 08/11/21 08/11/21 14:04 11:47 08:51 RBC Hgb Hct POC Hct RDW Neut % (Auto) Lymph % (Auto) Lymph # (Auto) Lymphocytes % Absolute Neutrophils RBC Morphology Anisocytosis ABG Methemoglobin 0.1 L VBG pH 7.52 H VBG pCO2 33.7 L VBG pO2 118.9 H VBG O2 Saturation 88.3 H VBG Base Excess 5 H Carboxyhemoglobin 10.0 H Total Hemoglobin 12.2 L Sodium Chloride Anion Gap POC BUN BUN Creatinine POC Creatinine Glucose POC Glucose Uric Acid Iron Transferrin % Sat Troponin T 0.04 H* C-Reactive Protein NT-Pro-B Natriuret Pep Globulin Albumin/Globulin Ratio Procalcitonin 0.15 H 08/11/21 08/11/21 08/11/21 08:51 08:51 08:51 RBC Hgb Hct POC Hct 34 L RDW Neut % (Auto) Lymph % (Auto) Lymph # (Auto) Lymphocytes % Absolute Neutrophils RBC Morphology Anisocytosis ABG Methemoglobin VBG pH VBG pCO2 VBG pO2 VBG O2 Saturation VBG Base Excess Carboxyhemoglobin Total Hemoglobin Sodium Chloride Anion Gap POC BUN 43 H BUN Creatinine POC Creatinine 2.1 H Glucose POC Glucose 195 H Uric Acid Iron Transferrin % Sat Troponin T 0.04 H* C-Reactive Protein 4.60 H NT-Pro-B Natriuret Pep 1019.0 H Globulin Albumin/Globulin Ratio Procalcitonin 08/11/21 08:51 RBC 3.68 L Hgb 10.8 L Hct 32.8 L POC Hct RDW 15.6 H Neut % (Auto) 86.3 H Lymph % (Auto) 6.5 L Lymph # (Auto) 0.71 L Lymphocytes % Absolute Neutrophils 9.35 H RBC Morphology Anisocytosis ABG Methemoglobin VBG pH VBG pCO2 VBG pO2 VBG O2 Saturation VBG Base Excess Carboxyhemoglobin Total Hemoglobin Sodium Chloride Anion Gap POC BUN BUN Creatinine POC Creatinine Glucose POC Glucose Uric Acid Iron Transferrin % Sat Troponin T C-Reactive Protein NT-Pro-B Natriuret Pep Globulin Albumin/Globulin Ratio Procalcitonin Meds: Medications Acetaminophen (Acetaminophen 325 Mg Tablet) 650 mg PO Q6HP PRN; Protocol PRN Reason: Per Pain Protocol/Fever > 101 Last Admin: 08/12/21 19:06 Dose: 650 mg Documented by: Albuterol Sulfate (Albuterol Sulfate 2.5 Mg/3 Ml Nebulizer) 2.5 mg NEB Q2HP PRN PRN Reason: Shortness Of Breath Albuterol/Ipratropium (Ipratropium/Albuterol 3 Ml Ampul.Neb) 3 ml NEB Q6HRT [facility] Last Admin: 08/14/21 07:00 Dose: 3 ml Documented by: Amlodipine Besylate (Amlodipine 5 Mg Tablet) 2.5 mg PO DAILY [facility] Last Admin: 08/13/21 08:08 Dose: 2.5 mg Documented by: Atorvastatin Calcium (Atorvastatin 10 Mg Tablet) 10 mg PO QDAY [facility] Last Admin: 08/13/21 08:07 Dose: 10 mg Documented by: Benzonatate (Benzonatate 100 Mg Capsule) 100 mg PO TIDP PRN PRN Reason: Cough Last Admin: 08/11/21 21:23 Dose: 100 mg Documented by: Ceftriaxone Sodium (Ceftriaxone 1 Gm Vial) 1 gm IV Q24H [facility]; Protocol Stop: 08/17/21 19:14 Last Admin: 08/13/21 09:53 Dose: 1 gm Documented by: Dextrose (Dextrose 50% 50 Ml Vial) 0 ml IV UD PRN PRN Reason: Per Sliding Scale Diagnostic Test (Pha) (Accu-Chek 1 Each Strip) [address] [facility] Last Admin: 08/14/21 07:29 Dose: 1 each Documented by: Docusate Sodium (Docusate Sodium 100 Mg Capsule) 100 mg PO BID [facility] Last Admin: 08/13/21 22:00 Dose: 100 mg Documented by: Fluoxetine HCl (Fluoxetine Hcl 20 Mg Capsule) 20 mg PO QDAY [facility] Last Admin: 08/13/21 08:08 Dose: 20 mg Documented by: Gabapentin (Gabapentin 300 Mg Capsule) 300 mg PO BID [facility] Last Admin: 08/13/21 22:00 Dose: 300 mg Documented by: Glucose (Dextrose 31 Gm Oral.Susp) 15 gm PO PRN PRN PRN Reason: Hypoglycemia Guaifenesin (Guaifenesin 600 Mg Tab.Sr.12h) 600 mg PO BID [facility] Last Admin: 08/13/21 21:59 Dose: 600 mg Documented by: Hydroxyzine HCl (Hydroxyzine 25 Mg Tablet) 25 mg PO TIDP PRN PRN Reason: anxiety Azithromycin 500 mg/ Dextrose 250 mls @ 250 mls/hr IV DAILY [facility]; Protocol Stop: 08/14/21 09:59 Last Infusion: 08/13/21 15:24 Dose: Infused Documented by: Insulin Glargine (Insulin Glargine, Human 1 Unit/0.01 Ml) 10 unit SQ [facility] Last Admin: 08/13/21 22:01 Dose: 10 units Documented by: Insulin Human Lispro (Insulin Lispro 1 Unit/0.01 Ml Unit) 0 unit SQ [facility]; Protocol Last Admin: 08/14/21 07:28 Dose: 10 units Documented by: Methylprednisolone Sodium Succinate (Methylprednisolone Sod Succ 40 Mg/Ml Vial) 40 mg IV Q12 [facility] Last Admin: 08/13/21 21:59 Dose: 40 mg Documented by: Morphine Sulfate (Morphine 2 Mg/Ml Vial) 2 mg IV Q4HP PRN; Protocol PRN Reason: air hunger Ondansetron HCl (Ondansetron 4 Mg/2 Ml Vial) 4 mg IV Q6HP PRN PRN Reason: Nausea And Vomiting Fluticasone- Umeclidin-Vilanter [ Trelegy Ellipta] 200 -62.5-25 Mcg Inhaler 1 dose INH DAILY [facility] Budesonide-Glycopyr- Formoterol [Breztri Aerosphere] 160-9-4. 8 Mcg/Actuation Inhaler 2 dose INH DAILY [facility] Rivaroxaban (Rivaroxaban 15 Mg Tablet) 15 mg PO QPMCC [facility] Last Admin: 08/13/21 17:02 Dose: 15 mg Documented by: Senna (Sennosides 1 Tablet) 2 tab PO HS [facility] Last Admin: 08/13/21 21:59 Dose: 2 tab Documented by: Sodium Chloride (0.9 % Sodium Chloride 10 Ml Syringe) 10 ml IV Q8 [facility] Last Admin: 08/14/21 05:40 Dose: 10 ml Documented by: Tamsulosin HCl (Tamsulosin 0.4 Mg Capsule) 0.4 mg PO QDAY [facility] Last Admin: 08/13/21 08:07 Dose: 0.4 mg Documented by: ABG Interpretation ABG results: 08/11/21 11:47 ABG Methemoglobin 0.1 L VBG pH 7.52 H VBG pCO2 33.7 L VBG pO2 118.9 H VBG HCO3 27.1 VBG Total CO2 28.2 VBG O2 Saturation 88.3 H VBG Base Excess 5 H A/P Narrative A/P Narrative: A: #CAP likely Aspiration PNA: #COPD exacerbation w/chronic hypoxia (2-3L@home): #Acute on chronic diastolic CHF: likely resolved #Generalized weakness: #CKD IIIb: #Anemia, chronic: #DM Type 2: #Atrial fibrillation: on Xarelto #ALEJANDRA on CPAP: #Hyperlipidemia / BPH: Plan: -Ceftriaxone/Azithromycin -Solumedrol (wean) 40 mg IV BID -Scheduled duoneb and prn albuterol nebs. -Oxygen supplementation -Monitor renal function, electrolytes, urine output and volume status. -hold home lasix for now -Lantus and SSI, holding home metformin and glipizide for now -cont Norvasc 5mg daily, holding home lisinopril/HCTZ for now -cont home gabapentin/pravastatin/Flomax, aripiprazole/fluoxetine. -PT consult, Speech therapy consult -Remove dan catheter -ppx: On Xarelto -CODE STATUS: Manager Solution Spent With Patient Time: Total time spent is greater than 50% in coordination of care (as documented) at patient's floor/unit and/or counseling patient: QUALITY VTE Deep Vein Thrombosis/Pulmonary Embolism Present on Admission: No
[2021-08-14] MEDS: methylPREDNISolone SOD SUCC 40 MG/ML VIAL IV SCH (08:37)
[2021-08-14] MEDS: GABAPENTIN 300 MG CAPSULE PO SCH ×2 (08:38→21:02)
[2021-08-14] MEDS: FLUoxetine HCL 20 MG CAPSULE PO SCH (08:38)
[2021-08-14] MEDS: DOCUSATE SODIUM 100 MG CAPSULE PO SCH ×2 (08:38→21:02)
[2021-08-14] MEDS: amLODIPine 5 MG TABLET PO SCH (08:38)
[2021-08-14] MEDS: ARIPIPRAZOLE 5 MG TABLET PO SCH (08:38)
[2021-08-14] MEDS: AZITHROMYCIN 500 MG in DEXTROSE 5% IN WATER 250 ML IV SCH (08:38)
[2021-08-14] MEDS: ATORVASTATIN 10 MG TABLET PO SCH (08:38)
[2021-08-14] MEDS: SODIUM CHLORIDE 1 GM TABLET PO SCH ×3 (08:39→21:02)
[2021-08-14] MEDS: guaiFENesin 600 MG TAB.SR.12H PO SCH ×2 (08:39→21:01)
[2021-08-14] MEDS: TAMSULOSIN 0.4 MG CAPSULE PO SCH (08:39)
[2021-08-14] MEDS: GLYCOPYRROLATE INH SCH (08:44)
[2021-08-14] MEDS: FORMOTEROL INH SCH (08:44)
[2021-08-14] MEDS: Fluticasone-Umeclidin-Vilanter [Trelegy Ellipta] 200-62.5-25 MCG Inhaler INH SCH (08:44)
[2021-08-14] MEDS: BUDESONIDE INH SCH (08:44)
[2021-08-14] MEDS: cefTRIAXone 1 GM VIAL IV SCH (09:53)
--- NOTE | 2021-08-14 11:17 | Discharge Summary ---
Discharge Provider Provider Patient information: Note initiated : 08/14/21 at 11:15 am Service Date, if different from initiated Date: [] Patient: Maximo De La Cruz 80 y/o M admitted on 08/11/21 for Cough, weakness. Chief Complaint: [] Date of admission: 08/11/21 13:04 Discharge date: 08/15/21 Primary care physician: Hadley Hernandez DO Consults: 08/11/21 Consult to Physician [CONS] Stat Comment: Consulting Provider: Lico Ortega Reason For Exam: Physician to Consult Discharge Meds Discharge Medications Home Medications blood sugar diagnostic #20 each 07/08/17 [History Confirmed 06/07/21 Last Taken Unknown] gabapentin 300 mg capsule 300 mg PO BID cap 07/08/17 [History Confirmed 08/11/21 Last Taken 08/10/21 20:00] hydrochlorothiazide 25 mg tablet 25 mg PO QDAY 07/08/17 [History Confirmed 08/11/21 Last Taken 08/10/21 20:00] lancets #50 each 07/08/17 [History Confirmed 06/07/21 Last Taken Unknown] lisinopril 40 mg tablet 40 mg PO QDAY 07/08/17 [History Confirmed 08/11/21 Last Taken 08/10/21 18:00] tamsulosin 0.4 mg capsule (Flomax) 0.4 mg PO QDAY #30 cap 03/24/18 [Rx Confirmed 08/11/21 Last Taken 08/10/21 18:00] CPAP #1 ea 12/18/18 [History Confirmed 06/07/21 Last Taken Unknown] aripiprazole 5 mg tablet 5 mg PO QDAY 02/13/21 [History Confirmed 08/11/21 Last Taken 08/10/21 08:00] fluoxetine 20 mg capsule 20 mg PO QDAY 02/13/21 [History Confirmed 08/11/21 Last Taken 08/10/21 08:00] glipizide 5 mg tablet 5 mg PO QDAY tab 02/13/21 [History Confirmed 08/11/21 Last Taken 08/10/21 18:00] metformin 1,000 mg tablet 1,000 mg PO BID tab 02/13/21 [History Confirmed 08/11/21 Last Taken 08/10/21 18:00] Nebulizer and supplies #1 ea 06/07/21 [Rx Confirmed 06/07/21 Last Taken Unknown] albuterol sulfate 90 mcg/actuation aerosol inhaler (ProAir HFA) 2 puff INHALATION .Q4-6H PRN #18 g 06/07/21 [Rx Confirmed 08/11/21 Last Taken 08/10/21 16:00] furosemide 40 mg tablet 40 mg PO QAM #90 tab 06/07/21 [Rx Confirmed 08/11/21 Last Taken 08/10/21 08:00] pravastatin 40 mg tablet 40 mg PO QDAY 06/07/21 [History Confirmed 08/11/21 Last Taken 08/10/21 18:00] budesonide 160 mcg-glycopyr 9 mcg-formot 4.8 mcg/actuation HFA inhaler (Breztri Aerosphere) 2 puff INHALATION DAILY 08/11/21 [History Confirmed 08/11/21 Last Taken 08/10/21 08:00] fluticasone fur. 200 mcg-umeclid 62.5 mcg-vilant 25 mcg inhalat.powder (Trelegy Ellipta) 1 inh INHALATION DAILY 08/11/21 [History Confirmed 08/11/21 Last Taken 08/10/21 08:00] rivaroxaban 20 mg tablet (Xarelto) 1 tab PO HS 08/11/21 [History Confirmed 08/11/21 Last Taken 08/10/21 18:00] insulin glargine 100 unit/mL (3 mL) subcutaneous pen (Lantus Solostar U-100 Insulin) 10 - 15 unit SUBCUT HS 08/12/21 [History Confirmed 08/12/21 Last Taken Unknown] cefdinir 300 mg capsule 300 mg PO BID #4 cap 08/14/21 [Rx Last Taken Unknown] prednisone 10 mg tablet 30 mg PO QDAY #1 tab 08/14/21 [Rx Last Taken Unknown] COURSE Hospital Course Hospital course: Interval history: Mr. De La Cruz is a 80 year old male with a history of hyperlipidemia, type 2 diabetes mellitus, atrial fibrillation on Xarelto, diastolic heart failure, right ventricle enlargement, chronic kidney disease stage IIIb, chronic normocytic anemia, COPD with chronic hypoxia of 2 to 3 L/min oxygen requirement, obstructive sleep apnea on CPAP, CVA, recent pneumonia in May 2021 who presented to the emergency department for fatigue and dyspnea that has been progressively worsening for about 3 days. Patient has also been experiencing bilateral lower extremity edema that is more than his baseline for at least 1 week. In the emergency department, the patient was afebrile, hemodynamically stable, requiring 4 L/min nasal cannula oxygen and in no respiratory distress. The patient appeared to be generally weak and tired. Physical exam is most notable for bilateral lower extremity pedal edema up to his mid calf. Routine blood work shows a normal WBC, stable hemoglobin of 10.8, creatinine of 2.1 which is slightly higher than the patient's baseline of 1.6-1.8, ilbke-ya-ynnx glucose of 195, NT proBNP of 1019 and troponin mildly elevated at 0.04. EKG showed atrial fibrillation with a heart rate of 71, no acute ischemic changes. Hospital medicine was consulted for admission. 08/12 The patient became increasingly dyspneic today, lung sounds diminished bilaterally and not moving air well, chest xray was notable bibasilar infiltrates. ABG was normal. Started Ceftriaxone and Azithromycin as well as Solumedrol IV and bronchodilators for COPD exacerbation. Volume status looks good after a couple doses of lasix so discontinued IV lasix and resumed home oral lasix. 08/13 Respiratory status much better than yesterday, transferred back to [facility]. Speech consult pending. 08/14 Patient states his cough and shortness of breath no more than usual. Hoping to go home soon. Awaiting speech therapy evaluation pending. Sodium low this morning. Renal function stable. 08/15 No overnight event or new complaints. Has his chronic cough and shortness of breath. Awaiting barium swallow with speech today. Sodium improved. Renal function stable. Barium swallow speech unremarkable. Discharge planning. A: #CAP likely Aspiration PNA: #COPD exacerbation w/chronic hypoxia (2-3L@home): #Acute on chronic diastolic CHF: likely resolved #Generalized weakness: #CKD IIIb: #Anemia, chronic: #DM Type 2: #Atrial fibrillation: on Xarelto #ALEJANDRA on CPAP: #Hyperlipidemia / BPH: Plan: -finish course of Abx for PNA -steroid taper Discharge diagnosis: Aspiration pneumonia COPD exacerbation CHF Secondary discharge diagnosis: Generalized weakness chronic kidney disease chronic anemia diabetes A. fib obstructive sleep apnea Time Spent with Patient Time attestation: Total time spent providing and/or coordinating discharge services: Time spent: Greater than 30 minutes EXAM Constitutional Vitals: Temp Pulse Resp BP Pulse Ox 97.4 F 80 15 118/65 92 08/14/21 08:00 08/14/21 08:00 08/14/21 08:00 08/14/21 08:00 08/14/21 08:00 Discharge Data Data Completed and Pending Labs on day of discharge: Labs from last 24 hours 08/14/21 05:06 Sodium 126 L Potassium 3.7 Chloride 86 L Carbon Dioxide 26 Anion Gap 14.0 BUN 73 H Creatinine 2.0 H GFR Calculation 31 Glucose 289 H Uric Acid 10.1 H Calcium 9.2 Phosphorus 3.8 Magnesium 2.3 Total Bilirubin 0.2 Direct Bilirubin < 0.2 GGT 9 AST 17 ALT 11 Alkaline Phosphatase 59 Lactate Dehydrogenase 151 Total Protein 6.8 Albumin 3.2 Globulin 3.6 Albumin/Globulin Ratio 0.9 L Triglycerides 82 Discharge Plan Patient/Caregiver Discharge Instructions Activity: increase activity as tolerated Diet: Consistent Carbohydrate Prescriptions: New cefdinir 300 mg capsule 300 mg PO BID Qty: 4 0RF prednisone 10 mg tablet 30 mg PO QDAY Qty: 1 0RF Rx Instructions: Take 30mg once daily for 2 days then 20mg once daily x2 days then 10mg x2 days and 5mg x2 days and stop Continued gabapentin 300 mg capsule 300 mg PO BID 0RF hydrochlorothiazide 25 mg tablet 25 mg PO QDAY 0RF lisinopril 40 mg tablet 40 mg PO QDAY 0RF (DME) blood sugar diagnostic strip See Dose Instructions .ROUTE .MEDSUPPLY Qty: 20 0RF Rx Instructions: As directed (DME) [facility] See Dose Instructions .ROUTE .MEDSUPPLY Qty: 50 0RF Rx Instructions: As directed glipizide 5 mg tablet 5 mg PO QDAY 0RF metformin 1,000 mg tablet 1,000 mg PO BID 0RF fluoxetine 20 mg capsule 20 mg PO QDAY 0RF aripiprazole 5 mg tablet 5 mg PO QDAY 0RF pravastatin 40 mg tablet 40 mg PO QDAY 0RF furosemide 40 mg tablet 40 mg PO QAM Qty: 90 3RF (DME) CPAP Qty: 1 0RF Dose Instruction: As directed Rx Instructions: As directed (DME) Nebulizer and supplies See Rx Instructions .Route .MEDSUPPLY Qty: 1 0RF Rx Instructions: As directed albuterol sulfate [ProAir HFA] 90 mcg/actuation HFA aerosol inhaler 2 puff INHALATION .Q4-6H PRN (Reason: Shortness Of Breath) Qty: 18 6RF Xarelto 20 mg tablet 1 tab PO HS 0RF Breztri Aerosphere 160-9-4.8 mcg/actuation HFA aerosol inhaler 2 puff inhalation DAILY 0RF Trelegy Ellipta 200-62.5-25 mcg blister with device 1 inh inhalation DAILY 0RF Lantus Solostar U-100 Insulin 100 unit/mL (3 mL) insulin pen 10 - 15 unit subcut HS 0RF tamsulosin [Flomax] 0.4 mg capsule 0.4 mg PO QDAY Qty: 30 12RF Follow Up Plan Follow up with: Hadley Hernandez DO [Primary Care Provider] - Patient Disposition: Home Health Service Prognosis: Undetermined Overall status at discharge: patient is progressing back to baseline Discharge Orders: Discharge Order (Routine); Ordered 08/15/21 Ordered By: Celestino Gonsalez [facility] VTE Deep Vein Thrombosis/Pulmonary Embolism Present on Admission: No
[2021-08-14] MEDS: RIVAROXABAN 15 MG TABLET PO SCH (17:09)
[2021-08-14] MEDS ORDERED: predniSONE 20 MG TABLET PO SCH (21:00)
[2021-08-14] MEDS ORDERED: INSULIN GLARGINE, HUMAN 1 UNIT/0.01 ML SQ SCH (21:00)
[2021-08-14] MEDS: SENNOSIDES 1 TABLET PO SCH (21:01)
[2021-08-15] MEDS: IPRATROPIUM/ALBUTEROL 3 ML AMPUL.NEB NEB SCH ×2 (00:48→07:38)
[2021-08-15] MEDS: 0.9 % SODIUM CHLORIDE 10 ML SYRINGE IV SCH ×2 (06:10→12:12)
[2021-08-15 07:45] LABS: ALT/SGPT 17 U/L (<40); AST/SGOT 21 U/L (<40); Albumin 3.1 gm/dL (3.2-5.2); Albumin/Globulin Ratio 0.8 (1.0-2.3); Alkaline Phosphatase 69 U/L (39-117); Bilirubin,Direct < 0.2 mg/dL (0-0.3); Bilirubin,Total 0.2 mg/dL (0.1-1.0); Blood Urea Nitrogen 76 mg/dL (8-23); Calcium 9.3 mg/dL (8.6-10.4); Carbon Dioxide 26 mmol/L (22-30); Chloride 88 mmol/L (96-108); Globulin 3.7 gm/dL (2.2-3.7); Glomerular Filtration Rate 33; Glucose 133 mg/dL (70-105); Lactate Dehydrogenase 208 U/L (135-225); Phosphorous 3.8 mg/dL (2.5-4.5); Triglycerides 96 mg/dL (<150); Uric Acid 10.1 mg/dL (2.5-8.0)
[2021-08-15] MEDS ORDERED: predniSONE 20 MG TABLET PO SCH (08:00)
--- NOTE | 2021-08-15 08:14 | Internal Med Progress Note ---
SUBJECTIVE Subjective Patient information: Note initiated : 08/15/21 at 8:10 am Service Date, if different from initiated Date: [] Patient: Maximo De La Cruz a 80 y/o M admitted on 08/11/21 for Cough, weakness. Chief Complaint: [] Interval history: Mr. De La Cruz is a 80 year old male with a history of hyperlipidemia, type 2 diabetes mellitus, atrial fibrillation on Xarelto, diastolic heart failure, right ventricle enlargement, chronic kidney disease stage IIIb, chronic normocytic anemia, COPD with chronic hypoxia of 2 to 3 L/min oxygen requirement, obstructive sleep apnea on CPAP, CVA, recent pneumonia in May 2021 who presented to the emergency department for fatigue and dyspnea that has been progressively worsening for about 3 days. Patient has also been experiencing bilateral lower extremity edema that is more than his baseline for at least 1 week. In the emergency department, the patient was afebrile, hemodynamically stable, requiring 4 L/min nasal cannula oxygen and in no respiratory distress. The patient appeared to be generally weak and tired. Physical exam is most notable for bilateral lower extremity pedal edema up to his mid calf. Routine blood work shows a normal WBC, stable hemoglobin of 10.8, creatinine of 2.1 which is slightly higher than the patient's baseline of 1.6-1.8, [id number] glucose of 195, NT proBNP of 1019 and troponin mildly elevated at 0.04. EKG showed atrial fibrillation with a heart rate of 71, no acute ischemic changes. Hospital medicine was consulted for admission. 08/12 The patient became increasingly dyspneic today, lung sounds diminished bilaterally and not moving air well, chest xray was notable bibasilar infiltrates. ABG was normal. Started Ceftriaxone and Azithromycin as well as Solumedrol IV and bronchodilators for COPD exacerbation. Volume status looks good after a couple doses of lasix so discontinued IV lasix and resumed home oral lasix. 08/13 Respiratory status much better than yesterday, transferred back to [facility]. Speech consult pending. 08/14 Patient states his cough and shortness of breath no more than usual. Hoping to go home soon. Awaiting speech therapy evaluation pending. Sodium low this morning. Renal function stable. 08/15 No overnight event or new complaints. Has his chronic cough and shortness of breath. Awaiting barium swallow with speech today. Sodium improved. Renal function stable. Review of Systems: denies headache/fever/chills/nausea/vomiting/chest or abdominal pain/diarrhea. Otherwise see above. Constitutional Vitals: Vital Signs Temp Pulse Resp BP Pulse Ox 96.8 F L 75 20 122/69 98 08/15/21 07:54 08/15/21 07:54 08/15/21 07:54 08/15/21 07:54 08/15/21 07:15 Period Temp Pulse Resp BP Sys/Maki Pulse Ox Last 24 Hr 96.8 F-98.3 F 74-96 15-24 122-142/62-88 95-99 Intake and Output 08/14/21 08/15/21 08/15/21 21:59 05:59 13:59 Intake Total 660 440 Output Total 2 101 2 Balance 658 339 -2 Weight 86.835 kg Intake & Output: Intake & Output 08/14/21 08/15/21 08/15/21 21:59 05:59 13:59 Intake Total 660 440 Output Total 2 101 2 Balance 658 339 -2 Weight 86.835 kg Intake: Oral 660 440 Output: Void Amount 100 # of times incontinent of urine 2 1 2 Other: Meal Dinner Percent of Meal Consumed 100% Urine Appearance Clear Urine Color Bright Yellow # Voids 1 Exam: General: Alert, Awake, No acute Distress Eyes/N/T: EOMI, Head/Neck: neck supple, CV: irreg irreg, No murmurs, Pulm: Mild rhonchi b/l improving, no wheezing today, prolonged expiratory phase Abd: soft, nontender, +BS x4 Ext: no clubbing/cyanosis, mild b/l LE edema Neuro: Alert, no focal deficits, moves all extremities, Skin: warm/dry OBJ DATA Labs CBC & Chem 7: 08/13/21 05:15 08/15/21 05:21 Labs: Abnormal Lab Results 08/15/21 08/14/21 08/13/21 05:21 05:06 05:15 RBC Hgb Hct RDW Lymphocytes % RBC Morphology Anisocytosis Sodium 130 L 126 L Chloride 88 L 86 L 92 L Anion Gap BUN 76 H 73 H 54 H Creatinine 1.9 H 2.0 H 2.0 H Glucose 133 H 289 H 241 H Uric Acid 10.1 H 10.1 H 10.5 H Iron Transferrin % Sat Albumin 3.1 L Globulin 3.8 H Albumin/Globulin Ratio 0.8 L 0.9 L 0.9 L 08/13/21 08/12/21 08/12/21 05:15 05:23 05:23 RBC 3.88 L Hgb 10.7 L Hct 34.3 L RDW 15.3 H Lymphocytes % 7 L 10 L RBC Morphology Abnormal A Abnormal A Anisocytosis 1+ A 1+ A Sodium Chloride 94 L Anion Gap 17.0 H BUN 45 H Creatinine 1.8 H Glucose 128 H Uric Acid 10.2 H Iron 17 L Transferrin % Sat 6 L Albumin Globulin 3.8 H Albumin/Globulin Ratio Meds: Medications Acetaminophen (Acetaminophen 325 Mg Tablet) 650 mg PO Q6HP PRN; Protocol PRN Reason: Per Pain Protocol/Fever > 101 Last Admin: 08/12/21 19:06 Dose: 650 mg Documented by: Albuterol Sulfate (Albuterol Sulfate 2.5 Mg/3 Ml Nebulizer) 2.5 mg NEB Q2HP PRN PRN Reason: Shortness Of Breath Albuterol/Ipratropium (Ipratropium/Albuterol 3 Ml Ampul.Neb) 3 ml NEB Q6HRT [facility] Last Admin: 08/15/21 07:38 Dose: 3 ml Documented by: Atorvastatin Calcium (Atorvastatin 10 Mg Tablet) 10 mg PO QDAY [facility] Last Admin: 08/14/21 08:38 Dose: 10 mg Documented by: Benzonatate (Benzonatate 100 Mg Capsule) 100 mg PO TIDP PRN PRN Reason: Cough Last Admin: 08/11/21 21:23 Dose: 100 mg Documented by: Ceftriaxone Sodium (Ceftriaxone 1 Gm Vial) 1 gm IV Q24H [facility]; Protocol Stop: 08/17/21 19:14 Last Admin: 08/14/21 09:53 Dose: 1 gm Documented by: Dextrose (Dextrose 50% 50 Ml Vial) 0 ml IV UD PRN PRN Reason: Per Sliding Scale Diagnostic Test (Pha) (Accu-Chek 1 Each Strip) 1 each FS ACHS [facility] Last Admin: 08/15/21 00:48 Dose: 1 each Documented by: Docusate Sodium (Docusate Sodium 100 Mg Capsule) 100 mg PO BID [facility] Last Admin: 08/14/21 21:02 Dose: 100 mg Documented by: Fluoxetine HCl (Fluoxetine Hcl 20 Mg Capsule) 20 mg PO QDAY [facility] Last Admin: 08/14/21 08:38 Dose: 20 mg Documented by: Gabapentin (Gabapentin 300 Mg Capsule) 300 mg PO BID [facility] Last Admin: 08/14/21 21:02 Dose: 300 mg Documented by: Glucose (Dextrose 31 Gm Oral.Susp) 15 gm PO PRN PRN PRN Reason: Hypoglycemia Guaifenesin (Guaifenesin 600 Mg Tab.Sr.12h) 600 mg PO BID [facility] Last Admin: 08/14/21 21:01 Dose: 600 mg Documented by: Hydroxyzine HCl (Hydroxyzine 25 Mg Tablet) 25 mg PO TIDP PRN PRN Reason: anxiety Insulin Glargine (Insulin Glargine, Human 1 Unit/0.01 Ml) 20 unit SQ [facility] Last Admin: 08/14/21 21:03 Dose: 20 units Documented by: Insulin Human Lispro (Insulin Lispro 1 Unit/0.01 Ml Unit) 0 unit SQ [facility]; Protocol Last Admin: 08/14/21 22:56 Dose: 8 units Documented by: Morphine Sulfate (Morphine 2 Mg/Ml Vial) 2 mg IV Q4HP PRN; Protocol PRN Reason: air hunger Ondansetron HCl (Ondansetron 4 Mg/2 Ml Vial) 4 mg IV Q6HP PRN PRN Reason: Nausea And Vomiting Fluticasone- Umeclidin-Vilanter [ Trelegy Ellipta] 200 -62.5-25 Mcg Inhaler 1 dose INH DAILY [facility] Last Admin: 08/14/21 08:44 Dose: Not Given Documented by: Budesonide-Glycopyr- Formoterol [Breztri Aerosphere] 160-9-4. 8 Mcg/Actuation Inhaler 2 dose INH DAILY [facility] Last Admin: 08/14/21 08:44 Dose: Not Given Documented by: Prednisone (Prednisone 20 Mg Tablet) [facility] Rivaroxaban (Rivaroxaban 15 Mg Tablet) 15 mg PO QPMCC [facility] Last Admin: 08/14/21 17:09 Dose: 15 mg Documented by: Senna (Sennosides 1 Tablet) 2 tab PO [facility] Last Admin: 08/14/21 21:01 Dose: 2 tab Documented by: Sodium Chloride (0.9 % Sodium Chloride 10 Ml Syringe) 10 ml IV Q8 [facility] Last Admin: 08/15/21 06:10 Dose: 10 ml Documented by: Tamsulosin HCl (Tamsulosin 0.4 Mg Capsule) 0.4 mg PO QDAY [facility] Last Admin: 08/14/21 08:39 Dose: 0.4 mg Documented by: ABG Interpretation ABG results: 08/11/21 11:47 ABG Methemoglobin 0.1 L VBG pH 7.52 H VBG pCO2 33.7 L VBG pO2 118.9 H VBG HCO3 27.1 VBG Total CO2 28.2 VBG O2 Saturation 88.3 H VBG Base Excess 5 H A/P Narrative A/P Narrative: A: #CAP likely Aspiration PNA: #COPD exacerbation w/chronic hypoxia (2-3L@home): #Acute on chronic diastolic CHF: likely resolved #Hyponatremia: Improved #Generalized weakness: #CKD IIIb: #Anemia, chronic: #DM Type 2: #Atrial fibrillation: on Xarelto #ALEJANDRA on CPAP: #Hyperlipidemia / BPH: Plan: -Barium swallow w/Speech -Ceftriaxone/Azithromycin -Solumedrol to prednisone 40mg daily -Scheduled duoneb and prn albuterol nebs. -Oxygen supplementation -Monitor renal function, electrolytes, urine output and volume status. -hold home lasix for now -Lantus and SSI, holding home metformin and glipizide for now -holding home lisinopril/HCTZ for now -cont home gabapentin/pravastatin/Flomax, aripiprazole/fluoxetine. 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
[2021-08-15] MEDS ORDERED: IPRATROPIUM/ALBUTEROL 3 ML AMPUL.NEB NEB SCH ×2 (08:15→15:00)
[2021-08-15] MEDS: GABAPENTIN 300 MG CAPSULE PO SCH (08:33)
[2021-08-15] MEDS: ARIPIPRAZOLE 5 MG TABLET PO SCH (08:33)
[2021-08-15] MEDS: DOCUSATE SODIUM 100 MG CAPSULE PO SCH (08:33)
[2021-08-15] MEDS: Fluticasone-Umeclidin-Vilanter [Trelegy Ellipta] 200-62.5-25 MCG Inhaler INH SCH (08:34)
[2021-08-15] MEDS: FLUoxetine HCL 20 MG CAPSULE PO SCH (08:34)
[2021-08-15] MEDS: ATORVASTATIN 10 MG TABLET PO SCH (08:34)
[2021-08-15] MEDS: GLYCOPYRROLATE INH SCH (08:34)
[2021-08-15] MEDS: BUDESONIDE INH SCH (08:34)
[2021-08-15] MEDS: FORMOTEROL INH SCH (08:34)
[2021-08-15] MEDS: TAMSULOSIN 0.4 MG CAPSULE PO SCH (08:34)
[2021-08-15] MEDS: INSULIN LISPRO 1 UNIT/0.01 ML UNIT SQ SCH ×2 (08:35→11:21)
[2021-08-15] MEDS: guaiFENesin 600 MG TAB.SR.12H PO SCH (08:36)
[2021-08-15] MEDS ORDERED: SODIUM CHLORIDE 1 GM TABLET PO SCH (09:00)
[2021-08-15] MEDS ORDERED: BUDESONIDE 0.5 MG/2 ML AMPUL.NEB NEB SCH (09:00)
[2021-08-15] MEDS: cefTRIAXone 1 GM VIAL IV SCH (09:05)
--- NOTE | 2021-08-15 12:30 | XRay Report ---
CLINICAL INFORMATION: Cough and weakness evaluate for aspiration COMPARISON: None. TECHNIQUE: Exam was performed in conjunction with speech pathology. The patient in upright position, and quality barium was administered while rapid fluoroscopic imaging was obtained. Fluoroscopy time 30 seconds FINDINGS: Elevation palate impression are normal. Pharyngeal stripping and nasopharyngeal closure is normal. The epiglottis. The epiglottis and vocal cords close normally-no evidence of aspiration into the laryngeal vestibule. Cricopharyngeus opens normally and initiation of primary peristalsis appears normal. IMPRESSION: Negative exam-no evidence of aspiration. Please see speech pathology report Interpreted and Authenticated by: Nicola Dias 08/15/21
== END 2021-08-15 13:25 | disposition home health service (06) | DRG 177 ==
LOC: ED 08:22 → MEDSUR 13:04 → ICU 08-12 12:10 → MEDSUR 08-13 13:15
PROVIDERS: ADMIT Internal Medicine; ATTEND Internal Medicine